=== PATIENT | female | born 1955 | race Two or more races ===

== ENCOUNTER 2020-05-15 05:40 | Inpatient (IN) | payer MEDICAID ==
[~2020-05-15] VITALS: Ht 154.9 cm; Wt 48.6 kg
[2020-05-15 05:46] VITALS: BP 134/79
--- NOTE | 2020-05-15 05:46 | NUR ---
ED Nurse Note: Pt biba from home CO CP x 2 days 05/10 in medial chest. Pt denies pain raidating, n/v/d/fever. Pt aao x 4, VSS no ss of distress noted. IV placed by EMT en route to hospital. Blood drawn and sent to lab. EKG performed by NUCLEAR POWER REACTOR OPERATOR. Awaiting ERMD at bedside. Pt placed in gown and on monitor. Awaiting further orders.
--- NOTE | 2020-05-15 05:51 | NUR ---
ED Nurse Note: Pt placed on 2L NC per ERMD; Spo2 100%
[2020-05-15] MEDS ORDERED: Nitroglycerin 2% oint pkt TOPIC ONE ×2 (05:59→06:15)
--- NOTE | 2020-05-15 06:00 | NUR ---
ED Nurse Note: XRAY at bedside
[2020-05-15 06:02] LABS: BASOPHILS % (AUTO) 1.8 % (0.0-2.0); EOSINOPHILS % (AUTO) 0.7 % (0.0-3.0); HEMATOCRIT 38.8 % (37.0-47.0); HEMOGLOBIN 13.3 G/DL (12.0-16.0); LYMPHOCYTES % (AUTO) 29.4 % (20.0-45.0); MEAN CORPUSCULAR VOLUME 90 FL (80-99); MONOCYTES % (AUTO) 7.2 % (1.0-10.0); NEUTROPHILS % (AUTO) 60.8 % (45.0-75.0); PLATELET COUNT 248 K/UL (150-450); RED BLOOD COUNT 4.31 M/UL (4.20-5.40); WHITE BLOOD COUNT 6.9 K/UL (4.8-10.8)
--- NOTE | 2020-05-15 06:03 | Emergency Room Report ---
History of Present Illness General Chief Complaint: Chest Pain Source: Patient Present Illness HPI Disclaimer: Please note that this report is being documented using [employer] technology. This can lead to erroneous entry secondary to incorrect interpretation by the dictating instrument. HPI: 64-year-old female history of hypertension and cardiac disease presents for evaluation of chest pain. She has been having intermittent chest pain for the past few weeks and a recent echocardiogram performed by PMD reportedly showed atherosclerotic disease. She states over the past 2 days the pain is been constant over the left chest nonradiating and aching. She describes it as an internal pain. Also notes some tingling in the hands. Denies fever, chills , shortness of breath, cough, URI symptoms, nausea, vomiting. Did report diaphoresis. PMH: Anxiety, CAD, hypertension PSH: Reviewed Allergies: Denies Social Hx: Reviewed Allergies: Coded Allergies: No Known Allergies (Unverified , 05/15/20) COVID-19 Screening Contact w/high risk pt: No Experienced COVID-19 symptoms?: No COVID-19 Testing performed LEAD BURNER SUPERVISOR: No Patient History Last Menstrual Period: n/a Now: No Nursing Documentation-PMH Past Medical History: No History, Except For Review of Systems All Other Systems: negative except mentioned in HPI Physical Exam Vital Signs Date Time Temp Pulse Resp B/P (MAP) Pulse Ox O2 Delivery O2 Flow Rate FiO2 05/15/20 05:36 99.0 72 16 134/79 (97) 99 Room Air General: Awake and alert, appears uncomfortable HEENT: NC/AT. EOMI. Cardiovascular: RRR. S1 and S2 normal. No murmur appreciated Resp: Normal work of breathing. No cough, wheezing or crackles appreciated Abdomen: Abdomen is soft, nondistended. Nontender Skin: Intact. No abrasions, laceration or rash over the exposed skin MSK: Normal tone and bulk. Moving all extremities. No obvious deformity. Neuro: Awake and alert. Mentating appropriately. Medical Decision Making Diagnostic Impression: Primary Impression: Chest pain Additional Impressions: Bradycardia Hyponatremia ER Course This is 64-year-old female history of hypertension and CAD presenting with chest pain. Concern for unstable angina, ACS, arrhythmia, pericarditis, myocarditis, bronchitis, pneumonia, pneumothorax, anxiety, esophageal spasm, electrolyte abnormality. Patient states she has a history of atherosclerotic disease but is not had a stress test yet. She arrives complaining of left- sided chest pain even after nitroglycerin and aspirin were given by EMS. Her EKG on arrival shows sinus rhythm with some T wave inversion in the precordial leads but no acute ST segment changes. She has had episodes of bradycardia going as low as 35 bpm and quickly recovering. Labs including cardiac enzymes have returned within normal limits. She continued to complain of chest pain and morphine was ordered. She noted some improvement. Given the patient's risk factors and brief episodes of bradycardia should be admitted to the telemetry service under panel physician, Dr. Arellano. Laboratory Tests Test 05/15/20 05:42 05/15/20 07:40 White Blood Count 6.9 K/UL (4.8-10.8) Red Blood Count 4.31 M/UL (4.20-5.40) Hemoglobin 13.3 G/DL (12.0-16.0) Hematocrit 38.8 % (37.0-47.0) Mean Corpuscular Volume 90 FL (80-99) Mean Corpuscular Hemoglobin 31.0 PG (27.0-31.0) Mean Corpuscular Hemoglobin Concent 34.4 G/DL (32.0-36.0) Red Cell Distribution Width 11.0 % (11.6-14.8) L Platelet Count 248 K/UL (150-450) Mean Platelet Volume 5.7 FL (6.5-10.1) L Neutrophils (%) (Auto) 60.8 % (45.0-75.0) Lymphocytes (%) (Auto) 29.4 % (20.0-45.0) Monocytes (%) (Auto) 7.2 % (1.0-10.0) Eosinophils (%) (Auto) 0.7 % (0.0-3.0) Basophils (%) (Auto) 1.8 % (0.0-2.0) Urine Osmolality 374 mOsm/kg (429-449) L Urine Random Sodium 84 mmol/L (20-110) Sodium Level 128 MMOL/L (136-145) L Potassium Level 3.2 MMOL/L (3.5-5.1) L Chloride Level 97 MMOL/L (98-107) L Carbon Dioxide Level 23 MMOL/L (21-32) Anion Gap 8 mmol/L (5-15) Blood Urea Nitrogen 13 mg/dL (7-18) Creatinine 0.8 MG/DL (0.55-1.30) Estimated Glomerular Filtration Rate > 60 mL/min (>60) Glucose Level 139 MG/DL (74-106) H Osmolality 282 mOsm/kg (297-317) L Uric Acid 2.8 MG/DL (2.6-7.2) Calcium Level 9.2 MG/DL (8.5-10.1) Phosphorus Level 2.9 MG/DL (2.5-4.9) Magnesium Level 1.8 MG/DL (1.8-2.4) Total Bilirubin 0.8 MG/DL (0.2-1.0) Aspartate Amino Transferase (AST) 70 U/L (15-37) H Alanine Aminotransferase (ALT) 119 U/L (12-78) H Alkaline Phosphatase 87 U/L (46-116) Troponin I 0.000 ng/mL (0.000-0.056) Total Protein 8.0 G/DL (6.4-8.2) Albumin 4.0 G/DL (3.4-5.0) Globulin 4.0 g/dL Albumin/Globulin Ratio 1.0 (1.0-2.7) Triglycerides Level 54 MG/DL (30-150) Cholesterol Level 183 MG/DL (< 200) LDL Cholesterol 108 mg/dL (<100) H HDL Cholesterol 68 MG/DL (40-60) H Cholesterol/HDL Ratio 2.7 (3.3-4.4) L Thyroid Stimulating Hormone (TSH) 1.534 uiU/mL (0.358-3.740) Urine Opiates Screen Positive (NEGATIVE) H Urine Barbiturates Screen Negative (NEGATIVE) Phencyclidine (PCP) Screen Negative (NEGATIVE) Urine Amphetamines Screen Negative (NEGATIVE) Urine Benzodiazepines Screen Negative (NEGATIVE) Urine Cocaine Screen Negative (NEGATIVE) Urine Marijuana (THC) Screen Negative (NEGATIVE) EKG Diagnostic Results EKG Time: 05:35 Rate: normal Rhythm: NSR ST Segments: no acute changes Other Impression Sinus rhythm, slight right axis with signs of RVH. T wave inversions precordial leads. No prior for comparison. No ST segment changes. ASA given to the pt in ED: Yes Rhythm Strip Diag. Results Rhythm Strip Time: 05:35 EP Interpretation: yes Rate: 60s Rhythm: NSR, no PVC's, no ectopy Chest X-Ray Diagnostic Results Chest X-Ray Diagnostic Results : Chest X-Ray Ordered: Yes # of Views/Limited/Complete: 1 View Indication: Chest Pain EP Interpretation: Yes Interpretation: no consolidation, no effusion, no pneumothorax, no acute cardiopulmonary disease Impression: No acute disease Electronically Signed by: Electronically signed by Dr. Johan Weaver Last Vital Signs Date Time Temp Pulse Resp B/P (MAP) Pulse Ox O2 Delivery O2 Flow Rate FiO2 05/15/20 05:46 72 16 Room Air 05/15/20 05:46 99.0 134/79 99 Disposition: ADMITTED INPATIENT Condition: Serious Johan Weaver MD May 15, 2020 06:03
--- NOTE | 2020-05-15 06:05 | NUR ---
ED Nurse Note: ERMD at bedside
--- NOTE | 2020-05-15 06:10 | NUR ---
ED Nurse Note: Pt HR continues to drop intermittently (marked low: HR35). ERMD aware and notified. Will continue to monitor.
[2020-05-15 06:13] LABS: ANION GAP 8 mmol/L (5-15); BLOOD UREA NITROGEN 13 mg/dL (7-18); CALCIUM 9.2 MG/DL (8.5-10.1); CARBON DIOXIDE 23 MMOL/L (21-32); CHLORIDE 97 MMOL/L (98-107); CREATININE 0.8 MG/DL (0.55-1.30); POTASSIUM 3.2 MMOL/L (3.5-5.1); SODIUM 128 MMOL/L (136-145)
--- NOTE | 2020-05-15 06:15 | NUR ---
ED Nurse Note: Repeat EKG performed by RN per ERMD. ERMD aware and reviewed.
--- NOTE | 2020-05-15 06:15 | NUR ---
ED Nurse Note: All medications administered, pt tolerated well no ss of distress noted. will continue to monitor.
[2020-05-15 06:18] LABS: ALANINE AMINOTRANSFERASE 119 U/L (12-78); ALKALINE PHOSPHATASE 87 U/L (46-116); ASPARTATE AMINO TRANSFERASE 70 U/L (15-37); BILIRUBIN,TOTAL 0.8 MG/DL (0.2-1.0)
[2020-05-15] MEDS ORDERED: SERTRALINE HCL25 MG ORAL (06:22)
--- NOTE | 2020-05-15 06:24 | NUR ---
ED Nurse Note: pt states she is unable to provide UA at this time. ERMD aware.
[2020-05-15] MEDS ORDERED: Morphine Sulfate 4mg/ml Inj (IV USE ONLY) IVP ONE (06:30)
--- NOTE | 2020-05-15 06:35 | NUR ---
ED Nurse Note: All medications administered, pt tolerated well no ss of distress noted. will continue to monitor.
[2020-05-15 06:44] LABS: PHOSPHORUS 2.9 MG/DL (2.5-4.9)
--- NOTE | 2020-05-15 06:56 | NUR ---
ED Nurse Note: Pt HR continues to drop intermittently (HR 42) ERMD aware. Will continue to monitor.
--- NOTE | 2020-05-15 07:03 | NUR ---
HAND-OFF: Report given to ENDER Teresa.
--- NOTE | 2020-05-15 07:05 | NUR ---
ED Nurse Note: PT currently resting in bed. pt states she is unable to urinate at this time will reattempt to obtain sample at a later time.
--- NOTE | 2020-05-15 07:05 | Diagnostic Imaging Report ---
EXAM: XR Chest, 1 View CLINICAL HISTORY: CP TECHNIQUE: Frontal view of the chest. COMPARISON: No relevant prior studies available. FINDINGS: Lungs: Unremarkable. No consolidation. Pleural space: No pleural effusion. No pneumothorax. Heart: Unremarkable. No cardiomegaly. Bones/joints: Unremarkable. IMPRESSION: No acute cardiopulmonary abnormality.
--- NOTE | 2020-05-15 07:30 | NUR ---
ED Nurse Note: Assisted pt restroom to obtain urine sample. pt vss. pt denies pain at this time but feels a little dizzy. IV site patent and intact. will call floor to give report for continuity of care.
[2020-05-15 07:37] VITALS: BP 112/62
--- NOTE | 2020-05-15 07:58 | NUR ---
ED Nurse Note: Telephone report given to ENDER Daniels for continuity of care.
--- NOTE | 2020-05-15 08:15 | NUR ---
TRANSFER TO FLOOR: Patient transferred to Tele as ordered, per ERMD. Report given to ENDER Daniels. Belongings given to pt.
--- NOTE | 2020-05-15 10:40 | NUR ---
NURSE NOTES: Pt complaining of chest pain, nausea and vomiting. MD notified, awaiting call back.
--- NOTE | 2020-05-15 11:10 | NUR ---
NURSE NOTES: Patient is admitted [facility] ED [facility]. On RA. AAO x 4. Rwandan speaking. IV on L hand 18g noted, with SL. Heart monitor on. c/o of pain on the chest. Admission orders are given by Dr. Arellano. Orientation on the unit given. Belongings are accounted. Skin intact. Side rails x 2. Bed in the lowest and locked. Call light within reach. Educated pt to call for assistance. Will continue to monitor
[2020-05-15 11:40] LABS: CHOLESTEROL 183 MG/DL (< 200); HDL CHOLESTEROL 68 MG/DL (40-60); TRIGLYCERIDES 54 MG/DL (30-150)
[2020-05-15 12:00] VITALS: BP 99/53
--- NOTE | 2020-05-15 13:09 | Consultation ---
Consult Note Consult Note I am asked to evaluate the patient at the request of Dr. Khan for hyponatremia and fluid and electrolyte management Patient seen in room 219. Patient examined. Data reviewed. Patient is Micronesian speaker. Chief Complaint: Chest Pain HPI: 64-year-old female history of hypertension and cardiac disease presents for evaluation of chest pain. She has been having intermittent chest pain for the past few weeks and a recent echocardiogram performed by PMD reportedly showed atherosclerotic disease. She states over the past 2 days the pain is been constant over the left chest nonradiating and aching. She describes it as an internal pain. Also notes some tingling in the hands. Denies fever, chills , shortness of breath, cough, URI symptoms, nausea, vomiting. Did report diaphoresis. PMH: Anxiety, CAD, hypertension PSH: Reviewed Allergies: Denies Social Hx: Reviewed Allergies: No Known Allergies (Unverified , 05/15/20) COVID-19 Screening Contact w/high risk pt: No Experienced COVID-19 symptoms?: No COVID-19 Testing performed SAUSAGE GRINDER: No Vital Signs Date Time Temp Pulse Resp B/P (MAP) Pulse Ox O2 Delivery O2 Flow Rate FiO2 05/15/20 05:36 99.0 72 16 134/79 (97) 99 Room Air General: Awake and alert, appears uncomfortable HEENT: NC/AT. EOMI. Cardiovascular: RRR. S1 and S2 normal. No murmur appreciated Resp: Normal work of breathing. No cough, wheezing or crackles appreciated Abdomen: Abdomen is soft, nondistended. Nontender Skin: Intact. No abrasions, laceration or rash over the exposed skin MSK: Normal tone and bulk. Moving all extremities. No obvious deformity. Neuro: Awake and alert. Mentating appropriately. LABORATORY DATA: Labs show sodium 128, potassium 3.2, BUN of 13, creatinine 0.8, and glucose of 139. Troponin is negative. White count is 6.9, hematocrit 13.3, hematocrit 38 and platelet count 248. Urine toxicology is positive for opiate. . . 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 Per orders Kyle Michel MD May 15, 2020 13:09
--- NOTE | 2020-05-15 13:15 | NUR ---
NURSE NOTES: Pt sodium 126, Dr Corona notified and ordered to consult Shereen. Shereen made aware of sodium 126. Awaiting call back. Pt temperature of 100.6, Dr Corona notified and ordered consult Rhea Best. Dr Rhea Best made aware. Awaiting call back.
--- NOTE | 2020-05-15 13:16 | NUR ---
CASE MANAGEMENT:INITIAL REVIEW 64 YR OLD FEMALE MIMI FROM HOME CC;CHEST PAIN SI;ACUTE CORONARY SYNDROME 99.0 72 16 134/79 98% ONRA NA 239 K+ 3.2 CL 97 BG 139 OSMOLALITY 282 AST 70 ALT 119 URINE OSMOLALITY 374 URINE TOX (+) OPIATES CXR~No acute cardiopulmonary abnormality. IS;NITROGLYCERIN TOP ONCE MORPHINE IV KCL PO ADMITTED TO TELE 05/15/20 @ 0742 TELE STATUS DCP;FROM HOME Addendum: 05/16/20 at 1526 by MIKEY MCADAMS LVN LVN CORRECTION: Na = 128 Addendum: 05/16/20 at 1603 by MIKEY MCADAMS LVN LVN INTERQUAL CRITERIA MET
[2020-05-15] MEDS ORDERED: NaCl 3% 500ml 250 ML IV ONE (14:30)
[2020-05-15 16:00] VITALS: BP 102/60
--- NOTE | 2020-05-15 16:35 | Cardiac Electrophysiology PN ---
Subjective Subjective [id number] Objective Last 24 Hour Vital Signs Date Time Temp Pulse Resp B/P (MAP) Pulse Ox O2 Delivery O2 Flow Rate FiO2 05/15/20 12:00 60 05/15/20 12:00 100.6 64 20 99/53 (68) 98 05/15/20 09:00 Room Air 05/15/20 08:36 Room Air 05/15/20 08:23 98.8 63 16 126/73 98 Room Air 05/15/20 07:40 98.8 05/15/20 07:37 98.8 59 15 112/62 100 Room Air 05/15/20 06:05 125/75 05/15/20 05:46 72 16 Room Air 05/15/20 05:46 99.0 62 16 134/79 99 Room Air 05/15/20 05:36 99.0 72 16 134/79 (97) 99 Room Air Laboratory Tests Test 05/15/20 05:42 05/15/20 07:40 White Blood Count 6.9 K/UL (4.8-10.8) Red Blood Count 4.31 M/UL (4.20-5.40) Hemoglobin 13.3 G/DL (12.0-16.0) Hematocrit 38.8 % (37.0-47.0) Mean Corpuscular Volume 90 FL (80-99) Mean Corpuscular Hemoglobin 31.0 PG (27.0-31.0) Mean Corpuscular Hemoglobin Concent 34.4 G/DL (32.0-36.0) Red Cell Distribution Width 11.0 % (11.6-14.8) L Platelet Count 248 K/UL (150-450) Mean Platelet Volume 5.7 FL (6.5-10.1) L Neutrophils (%) (Auto) 60.8 % (45.0-75.0) Lymphocytes (%) (Auto) 29.4 % (20.0-45.0) Monocytes (%) (Auto) 7.2 % (1.0-10.0) Eosinophils (%) (Auto) 0.7 % (0.0-3.0) Basophils (%) (Auto) 1.8 % (0.0-2.0) Urine Osmolality 374 mOsm/kg (429-449) L Urine Random Sodium 84 mmol/L (20-110) Sodium Level 128 MMOL/L (136-145) L Potassium Level 3.2 MMOL/L (3.5-5.1) L Chloride Level 97 MMOL/L (98-107) L Carbon Dioxide Level 23 MMOL/L (21-32) Anion Gap 8 mmol/L (5-15) Blood Urea Nitrogen 13 mg/dL (7-18) Creatinine 0.8 MG/DL (0.55-1.30) Estimat Glomerular Filtration Rate > 60 mL/min (>60) Glucose Level 139 MG/DL (74-106) H Osmolality 282 mOsm/kg (297-317) L Uric Acid 2.8 MG/DL (2.6-7.2) Calcium Level 9.2 MG/DL (8.5-10.1) Phosphorus Level 2.9 MG/DL (2.5-4.9) Magnesium Level 1.8 MG/DL (1.8-2.4) Total Bilirubin 0.8 MG/DL (0.2-1.0) Aspartate Amino Transf (AST/SGOT) 70 U/L (15-37) H Alanine Aminotransferase (ALT/SGPT) 119 U/L (12-78) H Alkaline Phosphatase 87 U/L (46-116) Troponin I 0.000 ng/mL (0.000-0.056) Total Protein 8.0 G/DL (6.4-8.2) Albumin 4.0 G/DL (3.4-5.0) Globulin 4.0 g/dL Albumin/Globulin Ratio 1.0 (1.0-2.7) Triglycerides Level 54 MG/DL (30-150) Cholesterol Level 183 MG/DL (< 200) LDL Cholesterol 108 mg/dL (<100) H HDL Cholesterol 68 MG/DL (40-60) H Cholesterol/HDL Ratio 2.7 (3.3-4.4) L Thyroid Stimulating Hormone (TSH) 1.534 uiU/mL (0.358-3.740) Urine Opiates Screen Positive (NEGATIVE) H Urine Barbiturates Screen Negative (NEGATIVE) Phencyclidine (PCP) Screen Negative (NEGATIVE) Urine Amphetamines Screen Negative (NEGATIVE) Urine Benzodiazepines Screen Negative (NEGATIVE) Urine Cocaine Screen Negative (NEGATIVE) Urine Marijuana (THC) Screen Negative (NEGATIVE) Alfie Cronin MD May 15, 2020 16:35
[2020-05-15] MEDS ORDERED: Lexiscan 0.4mg/5ml syringe IV PRN (16:45)
[2020-05-15] MEDS: Docusate 100mg cap ORAL SCH (17:25)
--- NOTE | 2020-05-15 19:21 | NUR ---
NURSE HAND-OFF REPORT: Important Events on Shift: admission from ER, N/V @ 0920, replacement of sodium and potassium Patient Status: FC, stable Diet: cardiac diet, regular Pending Orders: stress test 05/17, need SCDs from central supply Pending Results/Labs: Pending MD notification: Latest Vital Signs: Temperature 99.7 , Pulse 67 , B/P 102 /60 , Respiratory Rate 20 , O2 SAT 98 , Room Air, O2 Flow Rate . Vital Sign Comment: EKG Rhythm: Sinus Rhythm Rhythm change?: N MD Notified?: N - MD Response: Latest Barnes Fall Score: 30 Fall Risk: Medium Risk Safety Measures: Call light Within Reach, Bed Alarm Zone 1, Side Rails Side Rails x2, Bed position Low and Locked. Fall Precautions: Yellow Socks Door Sign Patient Fall Education Report given to ENDER Bhakta .
[2020-05-15 20:00] VITALS: BP 137/77
--- NOTE | 2020-05-15 20:00 | Consultation ---
DATE OF CONSULTATION: 05/15/2020 CARDIOLOGY CONSULTATION REFERRING PHYSICIAN: Karie Arellano M.D. REASON FOR CONSULTATION: Chest pain. HISTORY OF PRESENT ILLNESS: The patient is a 64-year-old lady with history of hypertension, who presented to the emergency room complaining of chest pain that has been going on over the last few weeks. The patient had a recent echocardiogram by primary care doctor and was told that she has atherosclerotic disease. The patient denies any prior myocardial infarction or stent or congestive heart failure. The patient presented with 2 days of left-sided chest pain, which is nonradiating, and also some tingling in her hands. The patient was admitted and a cardiology consultation was obtained for further evaluation and management. It is of note that the patient's sodium was quite low at 128 and has been given 3% normal saline. Her EKG shows sinus rhythm with anterior T-wave inversion, but no ST elevation. The patient had transient episodes of bradycardia, heart rate dropping to 35, but completely recovered. REVIEW OF SYSTEMS: Negative other than what was mentioned in the history of present illness. PAST MEDICAL HISTORY: As mentioned above. FAMILY HISTORY: Noncontributory. SOCIAL HISTORY: She lives at home. Does not smoke or drink alcohol. PHYSICAL EXAMINATION: VITAL SIGNS: Blood pressure of 99/52, pulse 86, respirations 18, and temperature 100.6, NECK: No jugular venous distention. LUNGS: Clear. CARDIOVASCULAR: Regular S1 and S2 with no gallop or murmur. ABDOMEN: Soft. EXTREMITIES: No pitting edema. LABORATORY DATA: Labs show sodium 128, potassium 3.2, BUN of 13, creatinine 0.8, and glucose of 139. Troponin is negative. White count is 6.9, hematocrit 13.3, hematocrit 38 and platelet count 248. Urine toxicology is positive for opiate. ASSESSMENT AND PLAN: 1. Chest pain. EKG showed anterior T-wave inversion. We will completely rule out OR protocol. Her echocardiogram showed ejection fraction of 50-55%, mild pulmonary hypertension. As the troponins are negative, we will schedule the patient for a stress test. 2. Hyponatremia. The patient has been given 3% normal saline and Lasix 10 mg IV every 8 hours. Further evaluation by Dr. Michel. 3. Hypokalemia. Potassium was replaced. Thank you very much for allowing me to participate in the care of this patient. Please do not hesitate to contact me for any questions regarding my evaluation. Alfie Cronin M.D. DR: THUY JOB#: [id number] CC:
--- NOTE | 2020-05-15 20:11 | NUR ---
NURSE NOTES: Received patient report from ENDER Daniels and ENDER Caceres. Patient shows no signs of distress, describes 4/10 pain on her chest but says its less than what she was feeling at home. Patient is a Chinese speaking female, AO x4. She is able to ambulate to restroom with a steady gait. Instructed her to call before getting up. IV site is patent and flushed. There are no signs of erythema, infiltration, or bleeding. Patient is on 2 L nasal canula and saturating at 98 % and denies shortness of breath. No complaints of nausea and vomiting. Bed is in the lowest position, call light within reach, side rails up x2. Called central supply for SCDs again and there was no answer. Will continue to monitor.
--- NOTE | 2020-05-15 21:22 | General Progress Note ---
Assessment/Plan Assessment/Plan: Assessment - Abnormal LFT - Epigastric pain - Chest pain Recommendations - Check viral serologies - abd ultrasound Sunday - PPI Thank you Nerissa Sanchez MD Subjective Allergies: Coded Allergies: No Known Allergies (Unverified , 05/15/20) Objective Last 24 Hour Vital Signs Date Time Temp Pulse Resp B/P (MAP) Pulse Ox O2 Delivery O2 Flow Rate FiO2 05/15/20 20:00 98.8 78 20 137/77 (97) 98 05/15/20 16:00 99.7 68 20 102/60 (74) 98 05/15/20 16:00 67 05/15/20 12:00 60 05/15/20 12:00 100.6 64 20 99/53 (68) 98 05/15/20 09:00 Room Air 05/15/20 08:36 Room Air 05/15/20 08:23 98.8 63 16 126/73 98 Room Air 05/15/20 07:40 98.8 05/15/20 07:37 98.8 59 15 112/62 100 Room Air 05/15/20 06:05 125/75 05/15/20 05:46 72 16 Room Air 05/15/20 05:46 99.0 62 16 134/79 99 Room Air 05/15/20 05:36 99.0 72 16 134/79 (97) 99 Room Air Laboratory Tests 05/15/20 05:42: White Blood Count 6.9, Red Blood Count 4.31, Hemoglobin 13.3, Hematocrit 38.8, Mean Corpuscular Volume 90, Mean Corpuscular Hemoglobin 31.0, Mean Corpuscular Hemoglobin Concent 34.4, Red Cell Distribution Width 11.0L, Platelet Count 248, Mean Platelet Volume 5.7L, Neutrophils (%) (Auto) 60.8, Lymphocytes (%) (Auto) 29.4, Monocytes (%) (Auto) 7.2, Eosinophils (%) (Auto) 0.7, Basophils (%) (Auto ) 1.8, Urine Osmolality 374L, Urine Random Sodium 84, Sodium Level 128L, Potassium Level 3.2L, Chloride Level 97L, Carbon Dioxide Level 23, Anion Gap 8, Blood Urea Nitrogen 13, Creatinine 0.8, Estimat Glomerular Filtration Rate > 60 , Glucose Level 139H, Osmolality 282L, Uric Acid 2.8, Calcium Level 9.2, Phosphorus Level 2.9, Magnesium Level 1.8, Total Bilirubin 0.8, Aspartate Amino Transf (AST/SGOT) 70H, Alanine Aminotransferase (ALT/SGPT) 119H, Alkaline Phosphatase 87, Troponin I 0.000, Total Protein 8.0, Albumin 4.0, Globulin 4.0, Albumin/Globulin Ratio 1.0, Triglycerides Level 54, Cholesterol Level 183, LDL Cholesterol 108H, HDL Cholesterol 68H, Cholesterol/HDL Ratio 2.7L, Thyroid Stimulating Hormone (TSH) 1.534 05/15/20 07:40: Urine Opiates Screen PositiveH, Urine Barbiturates Screen Negative, Phencyclidine (PCP) Screen Negative, Urine Amphetamines Screen Negative, Urine Benzodiazepines Screen Negative, Urine Cocaine Screen Negative, Urine Marijuana (THC) Screen Negative Height (Feet): 5 Height (Inches): 1.00 Weight (Pounds): 119 Nerissa Sanchez MD May 15, 2020 21:22
[2020-05-16] VITALS: BP 99/55
--- NOTE | 2020-05-16 01:45 | Consultation ---
DATE OF CONSULTATION: 05/15/2020 GASTROENTEROLOGY CONSULTATION CHIEF COMPLAINT: I was asked to see the patient by Dr. Karie Arellano for evaluation of abnormal liver tests. HISTORY OF PRESENT ILLNESS: The patient is a 64-year-old woman who has been admitted to the hospital due to chest pain. She is being evaluated by Cardiology for possible cardiac events. The patient also complains of some epigastric pain for about two weeks or so. She has had no nausea, vomiting, or diarrhea. The pain comes and goes and does note relate to meals. She has never had endoscopy or colonoscopy before. She was found to have some abnormal liver tests. She has never had a history of liver disease in the past. PAST MEDICAL HISTORY: History of possible coronary artery disease. The patient otherwise does not give any past medical history. FAMILY HISTORY: Noncontributory. SOCIAL HISTORY: The patient is . She does not smoke or drink alcohol. She lives at home. REVIEW OF SYSTEMS: Otherwise negative. PHYSICAL EXAMINATION: GENERAL: A pleasant woman, seen in her room. HEENT: Normocephalic and atraumatic. Sclerae anicteric. Oropharynx clear. NECK: Supple. CHEST: Clear to auscultation. CARDIOVASCULAR: Revealed regular rate. ABDOMEN: Soft, nontender and nondistended. EXTREMITIES: No edema. LABORATORY DATA: Noted. The patient's transaminases were elevated. ASSESSMENT: This patient presents with some epigastric abdominal pain without any specific features and also some abnormal liver tests. The differential diagnosis of the latter includes typical chronic hepatitis such as type B and C and also mass lesions in the liver. Therefore, she should have the imaging of the liver and hepatitis serologies. Gallbladder pathology will be another consideration, although the pain does not change with meals. She should be placed on a proton pump inhibitor in case her epigastric abdominal discomfort is actually peptic in origin. The patient was advised she have an endoscopy and colonoscopy once she has recovered from her current illness. Her liver tests should be followed and CPK and cardiac enzymes should also be checked to rule out any false-positive elevations. RECOMMENDATIONS: Per above discussion and per orders written in the chart. Thank you for asking me to participate in the care of this patient. Payman Khorrami, M.D. DR: Catracho JOB#: [id number] CC: NAVARRO
--- NOTE | 2020-05-16 01:45 | History and Physical Report ---
DATE OF ADMISSION: 05/15/2020 HISTORY OF PRESENT ILLNESS: The patient is admitted for chest pain, rule out acute coronary syndrome. The patient also has a history of CAD. She comes in because of intermittent chest pain, nonradiating, became constant. The patient also has some abnormalities based on the EKG, but no ST-segment changes. The patient was also bradycardic and troponin was negative rule out acute coronary syndrome. The patient also has low potassium, low sodium, as well as elevated LFTs, and that is the reason for admission. The patient basically has been having intermittent chest pains for the past 2 days. It is becoming more constant. Denies any shortness of breath. Denies any cough. Denies fever or chills. Denies diarrhea. Denies diaphoresis. Denies palpitation. PAST MEDICAL HISTORY: Significant for anxiety, CAD, hypertension. MEDICATIONS: The patient takes sertraline. FAMILY HISTORY: Noncontributory. SOCIAL HISTORY: As mentioned. REVIEW OF SYSTEMS: RESPIRATORY: Denies shortness of breath. Denies cough. CARDIOVASCULAR: Denies chest pain. GASTROINTESTINAL: Denies nausea, vomiting, or diarrhea. EXTREMITIES: Denies any significant pain. PHYSICAL EXAMINATION: VITAL SIGNS: Temperature is 100.6, pulse is 60, blood pressure 99/52. HEENT: PERRLA. NECK: Supple. No lymphadenopathy. CHEST: Clear to auscultation. CARDIOVASCULAR: Bradycardic. No murmurs. GASTROINTESTINAL: Soft, nontender, and nondistended. No organomegaly. EXTREMITIES: No edema. Moves all four extremities. Sensory intact to light touch. Reflexes on both sides. Dorsalis pedis pulses are present. LABORATORY DATA: WBC of 6.9, hemoglobin 13.3, and platelets 248. Sodium 139, potassium 3.2, BUN of 13, creatinine 0.8, and glucose of 139. ASSESSMENT AND PLAN: The patient is admitted for chest pain, rule out acute coronary syndrome. The patient has history of CAD, has some T-wave abnormalities, also became bradycardic before. Rule out acute coronary syndrome. Also, the patient has hyponatremia and elevated LFTs as well as hypokalemia. 1. Hypokalemia. 2. Electrolyte imbalance. 3. Chest pain, rule out acute coronary syndrome. 4. Bradycardia. 5. Elevated LFTs. I have asked Dr. Cronin, Dr. Michel, Dr. Nerissa Sanchez, Dr. Cornell Best to see the patient for the above-mentioned diagnoses and treatment. Antibiotics per Infectious Disease. I will see the patient for the above symptoms and abnormalities including imaging. Karie Arellano M.D. DR: CHRISSY JOB#: [id number] CC:
[2020-05-16 04:00] VITALS: BP 102/65
[2020-05-16 07:31] LABS: BASOPHILS % (AUTO) 1.4 % (0.0-2.0); EOSINOPHILS % (AUTO) 1.4 % (0.0-3.0); HEMATOCRIT 40.9 % (37.0-47.0); HEMOGLOBIN 13.8 G/DL (12.0-16.0); LYMPHOCYTES % (AUTO) 24.3 % (20.0-45.0); MEAN CORPUSCULAR VOLUME 92 FL (80-99); MONOCYTES % (AUTO) 8.4 % (1.0-10.0); NEUTROPHILS % (AUTO) 64.6 % (45.0-75.0); PLATELET COUNT 252 K/UL (150-450); RED BLOOD COUNT 4.44 M/UL (4.20-5.40); RED CELL DISTRIBUTION WIDTH 11.4 % (11.6-14.8); WHITE BLOOD COUNT 7.9 K/UL (4.8-10.8)
--- NOTE | 2020-05-16 07:35 | NUR ---
NURSE NOTES: Received report from Livia/RN, Observed patient lying semi-fowlers, resting comfortably, able to make needs known, denies pain at this time. On room air, No acute distress/SOB noted, Breathing unlabored and even. IV on left hand, saline locked. site is patent and clean. Bed in low position and locked. Call light and bed side table within reach. Encouraged to use call light when needed. Will continue plan of care.
--- NOTE | 2020-05-16 07:37 | NUR ---
NURSE HAND-OFF REPORT: Important Events on Shift:NA Patient Status:Full Code Diet: Cardiac Diet/ NPO for ultra sound Pending Orders: Abdominal Ultrasound Pending Results/Labs:NA Pending MD notification:NA Latest Vital Signs: Temperature 98.4 , Pulse 61 , B/P 102 /65 , Respiratory Rate 20 , O2 SAT 98 , Room Air, O2 Flow Rate . Vital Sign Comment: NA EKG Rhythm: Sinus Rhythm Rhythm change?: N MD Notified?: N - MD Response: Latest Barnes Fall Score: 30 Fall Risk: Medium Risk Safety Measures: Call light Within Reach, Bed Alarm Zone 1, Side Rails Side Rails x2, Bed position Low and Locked. Fall Precautions: Yellow Socks Door Sign Patient Fall Education Report given to ENDER Bettencourt.
[2020-05-16 07:43] LABS: ALANINE AMINOTRANSFERASE 125 U/L (12-78); ALBUMIN 4.1 G/DL (3.4-5.0); ALBUMIN/GLOBULIN RATIO 0.9 (1.0-2.7); ALKALINE PHOSPHATASE 90 U/L (46-116); ANION GAP 12 mmol/L (5-15); ASPARTATE AMINO TRANSFERASE 68 U/L (15-37); BLOOD UREA NITROGEN 10 mg/dL (7-18); CALCIUM 9.6 MG/DL (8.5-10.1); CARBON DIOXIDE 26 MMOL/L (21-32); CHLORIDE 96 MMOL/L (98-107); CREATININE 0.7 MG/DL (0.55-1.30); POTASSIUM 4.4 MMOL/L (3.5-5.1); SODIUM 134 MMOL/L (136-145)
[2020-05-16 07:52] LABS: GAMMA GLUTAMYL TRANSPEPTIDASE 29 U/L (5-85); PHOSPHORUS 3.6 MG/DL (2.5-4.9)
[2020-05-16 08:00] VITALS: BP 127/72
[2020-05-16 08:00] LABS: CREATINE KINASE 126 U/L (26-308)
[2020-05-16] MEDS: Docusate 100mg cap ORAL SCH ×2 (08:38→17:28)
[2020-05-16] MEDS: Sertraline 50mg tab ORAL SCH (08:38)
[2020-05-16] MEDS: Aspirin Baby 81mg ORAL SCH (08:38)
[2020-05-16] MEDS ORDERED: NaCl 3% 500ml 250 ML IV SCH (11:30)
[2020-05-16 12:00] VITALS: BP 123/71
--- NOTE | 2020-05-16 12:27 | Nephrology Progress Note ---
Assessment/Plan Problem List: (1) Hyponatremia (2) SIADH (syndrome of inappropriate ADH production) (3) Bradycardia (4) Chest pain Assessment 64 Y old presents with CP Low Na: likely SIADH Low K Plan Patient's daughter at the bedside Continue 3% saline and intravenous Lasix Keep I<O PO Fluid restriction Protonix, Colace, oral potassium supplements, Monitor electrolytes. Per orders Subjective ROS Limited/Unobtainable: No Constitutional: Reports: malaise, weakness Objective Objective Last 24 Hour Vital Signs Date Time Temp Pulse Resp B/P (MAP) Pulse Ox O2 Delivery O2 Flow Rate FiO2 05/16/20 09:00 Room Air 05/16/20 08:00 59 05/16/20 08:00 98.4 59 20 127/72 (90) 97 05/16/20 04:00 61 05/16/20 04:00 98.4 58 20 102/65 (77) 98 05/16/20 00:00 58 05/16/20 00:00 98.8 59 20 99/55 (70) 97 05/15/20 21:00 Room Air 05/15/20 20:00 64 05/15/20 20:00 98.8 78 20 137/77 (97) 98 05/15/20 16:00 99.7 68 20 102/60 (74) 98 05/15/20 16:00 67 Intake and Output 05/15/20 05/16/20 19:00 07:00 Output Total 1 ml Balance -1 ml Output Urine Total 1 ml # Voids 3 4 # Bowel Movements 1 Current Medications Medications (Trade) Dose Ordered Sig/Juan Route PRN Reason Start Time Stop Time Status Last Admin Dose Admin Aspirin (ASA) 81 mg DAILY ORAL 05/16/20 09:00 06/30/20 08:59 05/16/20 08:38 Docusate Sodium (Colace) 100 mg TWICE A DAY ORAL 05/15/20 18:00 06/14/20 17:59 05/16/20 08:38 Furosemide (Lasix) 10 mg EVERY 8 HOURS IV 05/15/20 14:00 06/14/20 13:59 05/16/20 05:38 Ondansetron HCl (Zofran) 4 mg Q6H PRN ORAL Nausea & Vomiting 05/15/20 11:30 9/14/20 11:29 Pantoprazole (Protonix) 40 mg BID ORAL 05/15/20 18:00 06/14/20 17:59 05/16/20 08:38 Potassium Chloride (K-Dur) 40 meq TWICE A DAY ORAL 05/15/20 13:30 08/13/20 13:29 05/16/20 08:38 Regadenoson (Lexiscan) 0.4 mg ONCE PRN IV stress test 05/15/20 16:45 05/18/20 23:59 Sertraline HCl (Zoloft) 50 mg DAILY ORAL 05/16/20 09:00 06/15/20 08:59 05/16/20 08:38 Sodium Chloride 250 ml @ 30 mls/hr ONCE IV 05/16/20 11:30 05/16/20 12:30 05/16/20 11:51 Laboratory Tests 05/16/20 06:25: White Blood Count 7.9, Red Blood Count 4.44, Hemoglobin 13.8, Hematocrit 40.9, Mean Corpuscular Volume 92, Mean Corpuscular Hemoglobin 31.1H, Mean Corpuscular Hemoglobin Concent 33.8, Red Cell Distribution Width 11.4L, Platelet Count 252, Mean Platelet Volume 5.8L, Neutrophils (%) (Auto) 64.6, Lymphocytes (%) (Auto) 24.3, Monocytes (%) (Auto) 8.4, Eosinophils (%) (Auto) 1.4, Basophils (%) (Auto ) 1.4, Sodium Level 134L, Potassium Level 4.4, Chloride Level 96L, Carbon Dioxide Level 26, Anion Gap 12, Blood Urea Nitrogen 10, Creatinine 0.7, Estimat Glomerular Filtration Rate > 60, Glucose Level 104, Hemoglobin A1c 5.9, Uric Acid 2.4L, Calcium Level 9.6, Phosphorus Level 3.6, Magnesium Level 2.0, Total Bilirubin 1.0, Gamma Glutamyl Transpeptidase 29, Aspartate Amino Transf (AST/ SGOT) 68H, Alanine Aminotransferase (ALT/SGPT) 125H, Alkaline Phosphatase 90, Total Creatine Kinase 126, Troponin I 0.000, C-Reactive Protein, Quantitative < 0.4, Pro-B-Type Natriuretic Peptide 147H, Total Protein 8.6H, Albumin 4.1, Globulin 4.5, Albumin/Globulin Ratio 0.9L, Hepatitis A IgM Antibody [Pending], Hepatitis C Antibody [Pending] Height (Feet): 5 Height (Inches): 1.00 Weight (Pounds): 118 General Appearance: no apparent distress Cardiovascular: normal rate Respiratory/Chest: decreased breath sounds Abdomen: soft Kyle Michel MD May 16, 2020 12:27
--- NOTE | 2020-05-16 13:21 | General Progress Note ---
Assessment/Plan Assessment/Plan: Assessment - Abnormal LFT - Epigastric pain - Chest pain Recommendations - Check viral serologies - abd ultrasound Sunday - PPI Subjective Allergies: Coded Allergies: No Known Allergies (Unverified , 05/15/20) Subjective Feels OK / same unable to get ultrasound today mild epigastric pain Objective Last 24 Hour Vital Signs Date Time Temp Pulse Resp B/P (MAP) Pulse Ox O2 Delivery O2 Flow Rate FiO2 05/16/20 09:00 Room Air 05/16/20 08:00 59 05/16/20 08:00 98.4 59 20 127/72 (90) 97 05/16/20 04:00 61 05/16/20 04:00 98.4 58 20 102/65 (77) 98 05/16/20 00:00 58 05/16/20 00:00 98.8 59 20 99/55 (70) 97 05/15/20 21:00 Room Air 05/15/20 20:00 64 05/15/20 20:00 98.8 78 20 137/77 (97) 98 05/15/20 16:00 99.7 68 20 102/60 (74) 98 05/15/20 16:00 67 Intake and Output 05/15/20 05/16/20 19:00 07:00 Output Total 1 ml Balance -1 ml Output Urine Total 1 ml # Voids 3 4 # Bowel Movements 1 Laboratory Tests 05/16/20 06:25: White Blood Count 7.9, Red Blood Count 4.44, Hemoglobin 13.8, Hematocrit 40.9, Mean Corpuscular Volume 92, Mean Corpuscular Hemoglobin 31.1H, Mean Corpuscular Hemoglobin Concent 33.8, Red Cell Distribution Width 11.4L, Platelet Count 252, Mean Platelet Volume 5.8L, Neutrophils (%) (Auto) 64.6, Lymphocytes (%) (Auto) 24.3, Monocytes (%) (Auto) 8.4, Eosinophils (%) (Auto) 1.4, Basophils (%) (Auto ) 1.4, Sodium Level 134L, Potassium Level 4.4, Chloride Level 96L, Carbon Dioxide Level 26, Anion Gap 12, Blood Urea Nitrogen 10, Creatinine 0.7, Estimat Glomerular Filtration Rate > 60, Glucose Level 104, Hemoglobin A1c 5.9, Uric Acid 2.4L, Calcium Level 9.6, Phosphorus Level 3.6, Magnesium Level 2.0, Total Bilirubin 1.0, Gamma Glutamyl Transpeptidase 29, Aspartate Amino Transf (AST/ SGOT) 68H, Alanine Aminotransferase (ALT/SGPT) 125H, Alkaline Phosphatase 90, Total Creatine Kinase 126, Troponin I 0.000, C-Reactive Protein, Quantitative < 0.4, Pro-B-Type Natriuretic Peptide 147H, Total Protein 8.6H, Albumin 4.1, Globulin 4.5, Albumin/Globulin Ratio 0.9L, Hepatitis A IgM Antibody [Pending], Hepatitis C Antibody [Pending] Height (Feet): 5 Height (Inches): 1.00 Weight (Pounds): 118 Objective WDWN L woman NCAT supple CTA RR abd soft ND no edema Nerissa Sanchez MD May 16, 2020 13:21
--- NOTE | 2020-05-16 13:35 | NUR ---
NURSE NOTES: Called [facility] [phone] [facility] to get report on Angio seal that it was done on february 24. No response.
--- NOTE | 2020-05-16 13:58 | Cardiac Electrophysiology PN ---
Assessment/Plan Assessment/Plan 1. Chest pain. EKG showed anterior T-wave inversion. Ruled out for [facility] protocol. Her echocardiogram showed ejection fraction of 50-55%, mild pulmonary hypertension. Scheduled for a stress test tomorrow. Will get cardiac cath report from [facility] from 02/25/20 2. Hyponatremia. The patient has been given 3% normal saline and Lasix 10 mg IV every 8 hours. Further evaluation by Dr. Michel. 3. Hypokalemia. Potassium was replaced. Subjective Subjective At times gets kristal in 50s.Had cardiac cath at [facility] 02/25/20, reportedly was negative. Still off and on CP Objective Last 24 Hour Vital Signs Date Time Temp Pulse Resp B/P (MAP) Pulse Ox O2 Delivery O2 Flow Rate FiO2 05/16/20 09:00 Room Air 05/16/20 08:00 59 05/16/20 08:00 98.4 59 20 127/72 (90) 97 05/16/20 04:00 61 05/16/20 04:00 98.4 58 20 102/65 (77) 98 05/16/20 00:00 58 05/16/20 00:00 98.8 59 20 99/55 (70) 97 05/15/20 21:00 Room Air 05/15/20 20:00 64 05/15/20 20:00 98.8 78 20 137/77 (97) 98 05/15/20 16:00 99.7 68 20 102/60 (74) 98 05/15/20 16:00 67 Intake and Output 05/15/20 05/16/20 19:00 07:00 Output Total 1 ml Balance -1 ml Output Urine Total 1 ml # Voids 3 4 # Bowel Movements 1 Laboratory Tests Test 05/16/20 06:25 White Blood Count 7.9 K/UL (4.8-10.8) Red Blood Count 4.44 M/UL (4.20-5.40) Hemoglobin 13.8 G/DL (12.0-16.0) Hematocrit 40.9 % (37.0-47.0) Mean Corpuscular Volume 92 FL (80-99) Mean Corpuscular Hemoglobin 31.1 PG (27.0-31.0) H Mean Corpuscular Hemoglobin Concent 33.8 G/DL (32.0-36.0) Red Cell Distribution Width 11.4 % (11.6-14.8) L Platelet Count 252 K/UL (150-450) Mean Platelet Volume 5.8 FL (6.5-10.1) L Neutrophils (%) (Auto) 64.6 % (45.0-75.0) Lymphocytes (%) (Auto) 24.3 % (20.0-45.0) Monocytes (%) (Auto) 8.4 % (1.0-10.0) Eosinophils (%) (Auto) 1.4 % (0.0-3.0) Basophils (%) (Auto) 1.4 % (0.0-2.0) Sodium Level 134 MMOL/L (136-145) L Potassium Level 4.4 MMOL/L (3.5-5.1) Chloride Level 96 MMOL/L (98-107) L Carbon Dioxide Level 26 MMOL/L (21-32) Anion Gap 12 mmol/L (5-15) Blood Urea Nitrogen 10 mg/dL (7-18) Creatinine 0.7 MG/DL (0.55-1.30) Estimat Glomerular Filtration Rate > 60 mL/min (>60) Glucose Level 104 MG/DL (74-106) Hemoglobin A1c 5.9 % (4.3-6.0) Uric Acid 2.4 MG/DL (2.6-7.2) L Calcium Level 9.6 MG/DL (8.5-10.1) Phosphorus Level 3.6 MG/DL (2.5-4.9) Magnesium Level 2.0 MG/DL (1.8-2.4) Total Bilirubin 1.0 MG/DL (0.2-1.0) Gamma Glutamyl Transpeptidase 29 U/L (5-85) Aspartate Amino Transf (AST/SGOT) 68 U/L (15-37) H Alanine Aminotransferase (ALT/SGPT) 125 U/L (12-78) H Alkaline Phosphatase 90 U/L (46-116) Total Creatine Kinase 126 U/L (26-308) Troponin I 0.000 ng/mL (0.000-0.056) C-Reactive Protein, Quantitative < 0.4 mg/dL (0.00-0.90) Pro-B-Type Natriuretic Peptide 147 pg/mL (0-125) H Total Protein 8.6 G/DL (6.4-8.2) H Albumin 4.1 G/DL (3.4-5.0) Globulin 4.5 g/dL Albumin/Globulin Ratio 0.9 (1.0-2.7) L Hepatitis A IgM Antibody Pending Hepatitis C Antibody Pending Objective NECK: No jugular venous distention. LUNGS: Clear. CARDIOVASCULAR: Regular S1 and S2 with no gallop or murmur. ABDOMEN: Soft. EXTREMITIES: No pitting edema. Alfie Cronin MD May 16, 2020 13:58
[2020-05-16 16:00] VITALS: BP 103/67
--- NOTE | 2020-05-16 19:15 | NUR ---
NURSE HAND-OFF REPORT: Important Events on Shift:NA Patient Status: stable Diet: NPO Pending Orders: Stress test/ US ABD Pending Results/Labs:NA Pending MD notification:NA Latest Vital Signs: Temperature 99.0 , Pulse 60 , B/P 103 /67 , Respiratory Rate 16 , O2 SAT 97 , Room Air, O2 Flow Rate . Vital Sign Comment: Stable EKG Rhythm: Sinus Rhythm Rhythm change?: N MD Notified?: N - MD Response: Latest Barnes Fall Score: 30 Fall Risk: Medium Risk Safety Measures: Call light Within Reach, Bed Alarm Zone 1, Side Rails Side Rails x2, Bed position Low and Locked. Fall Precautions: Yellow Socks Door Sign Patient Fall Education Report given to Livia/RN.
--- NOTE | 2020-05-16 19:31 | NUR ---
NURSE NOTES: Received patient report from ENDER Bettencourt. Patient shows no signs of distress or pain at the time. Patient is AO x4. Patient is aware that she needs to be NPO at midnight for abdominal ultrasound and stress test. IV site is leaking will start a new one. Bed is in the lowest position, call light is within reach, side rails up x 2. Patient is currently on room air and denies feeling short of breath. Will continue to monitor.
[2020-05-16 20:00] VITALS: BP 128/80
--- NOTE | 2020-05-16 23:43 | NUR ---
Patient has new IV on Right forearm 22 Gauge. Intact and patent.
--- NOTE | 2020-05-16 23:54 | General Progress Note ---
Assessment/Plan Problem List: (1) Chest pain ICD Codes: R07.9 - Chest pain, unspecified SNOMED: 28477718 (2) Hyponatremia ICD Codes: E87.1 - Hypo-osmolality and hyponatremia SNOMED: 90491556 (3) SIADH (syndrome of inappropriate ADH production) ICD Codes: E22.2 - Syndrome of inappropriate secretion of antidiuretic hormone SNOMED: 89596610 (4) Bradycardia ICD Codes: R00.1 - Bradycardia, unspecified SNOMED: 04994958 Status: progressing Assessment/Plan: afebrile nac chest pain r/o acs check trop Subjective ROS Limited/Unobtainable: Yes Allergies: Coded Allergies: No Known Allergies (Unverified , 05/15/20) Objective Last 24 Hour Vital Signs Date Time Temp Pulse Resp B/P (MAP) Pulse Ox O2 Delivery O2 Flow Rate FiO2 05/16/20 21:00 Room Air 05/16/20 20:00 99.9 61 18 128/80 (96) 98 05/16/20 16:00 60 05/16/20 16:00 99.0 60 16 103/67 (79) 97 05/16/20 12:00 98.1 60 18 123/71 (88) 98 05/16/20 12:00 65 05/16/20 09:00 Room Air 05/16/20 08:00 59 05/16/20 08:00 98.4 59 20 127/72 (90) 97 05/16/20 04:00 61 05/16/20 04:00 98.4 58 20 102/65 (77) 98 05/16/20 00:00 58 05/16/20 00:00 98.8 59 20 99/55 (70) 97 Intake and Output 05/15/20 05/16/20 19:00 07:00 Output Total 1 ml Balance -1 ml Output Urine Total 1 ml # Voids 3 4 # Bowel Movements 1 Laboratory Tests 05/16/20 06:25: White Blood Count 7.9, Red Blood Count 4.44, Hemoglobin 13.8, Hematocrit 40.9, Mean Corpuscular Volume 92, Mean Corpuscular Hemoglobin 31.1H, Mean Corpuscular Hemoglobin Concent 33.8, Red Cell Distribution Width 11.4L, Platelet Count 252, Mean Platelet Volume 5.8L, Neutrophils (%) (Auto) 64.6, Lymphocytes (%) (Auto) 24.3, Monocytes (%) (Auto) 8.4, Eosinophils (%) (Auto) 1.4, Basophils (%) (Auto ) 1.4, Sodium Level 134L, Potassium Level 4.4, Chloride Level 96L, Carbon Dioxide Level 26, Anion Gap 12, Blood Urea Nitrogen 10, Creatinine 0.7, Estimat Glomerular Filtration Rate > 60, Glucose Level 104, Hemoglobin A1c 5.9, Uric Acid 2.4L, Calcium Level 9.6, Phosphorus Level 3.6, Magnesium Level 2.0, Total Bilirubin 1.0, Gamma Glutamyl Transpeptidase 29, Aspartate Amino Transf (AST/ SGOT) 68H, Alanine Aminotransferase (ALT/SGPT) 125H, Alkaline Phosphatase 90, Total Creatine Kinase 126, Troponin I 0.000, C-Reactive Protein, Quantitative < 0.4, Pro-B-Type Natriuretic Peptide 147H, Total Protein 8.6H, Albumin 4.1, Globulin 4.5, Albumin/Globulin Ratio 0.9L, Hepatitis A IgM Antibody [Pending], Hepatitis C Antibody [Pending] Height (Feet): 5 Height (Inches): 1.00 Weight (Pounds): 118 Karie Arellano MD May 16, 2020 23:54
[2020-05-17] VITALS: BP 108/66
[2020-05-17 04:00] VITALS: BP 114/62
--- NOTE | 2020-05-17 07:33 | NUR ---
NURSE NOTES: Received report from ENDER Bhakta. Pt is stable, on 2LMP NC, sitting up in bed. Pt has no S/S or complaints of distress at this time.AOx4. L hand 22g IV SL, patent and asymptomatic. Pt bed low and locked, reminded to call for help and call light in reach.
--- NOTE | 2020-05-17 07:35 | NUR ---
NURSE HAND-OFF REPORT: Important Events on Shift:NA[] Patient Status: Full code[] Diet: NPO[] Pending Orders: []Abdominal ultrasound and stress test Pending Results/Labs:[]NA Pending MD notification:[]Call Dr. Wharton once Cardiac Cath result comes back Latest Vital Signs: Temperature 98.4 , Pulse 56 , B/P 114 /62 , Respiratory Rate 20 , O2 SAT 97 , Room Air, O2 Flow Rate . Vital Sign Comment: []NA EKG Rhythm: Sinus Bradycardia Rhythm change?: N MD Notified?: N - MD Response: Latest Barnes Fall Score: 30 Fall Risk: Medium Risk Safety Measures: Call light Within Reach, Bed Alarm Zone 1, Side Rails Side Rails x2, Bed position Low and Locked. Fall Precautions: Yellow Socks Door Sign Patient Fall Education Report given to []ENDER Daniels.
[2020-05-17 08:00] VITALS: BP 136/81
[2020-05-17] MEDS: Sertraline 50mg tab ORAL SCH (08:24)
[2020-05-17] MEDS: Docusate 100mg cap ORAL SCH ×2 (08:25→17:18)
[2020-05-17] MEDS: Aspirin Baby 81mg ORAL SCH (08:25)
--- NOTE | 2020-05-17 08:36 | NUR ---
NURSE NOTES: Pt stable and off tele for AUBRIE matta/ Chris.
[2020-05-17 08:58] LABS: ALANINE AMINOTRANSFERASE 127 U/L (12-78); ALBUMIN 4.1 G/DL (3.4-5.0); ALBUMIN/GLOBULIN RATIO 0.9 (1.0-2.7); ALKALINE PHOSPHATASE 91 U/L (46-116); ANION GAP 13 mmol/L (5-15); ASPARTATE AMINO TRANSFERASE 67 U/L (15-37); BILIRUBIN,TOTAL 0.9 MG/DL (0.2-1.0); BLOOD UREA NITROGEN 14 mg/dL (7-18); CALCIUM 9.1 MG/DL (8.5-10.1); CARBON DIOXIDE 25 MMOL/L (21-32); CHLORIDE 96 MMOL/L (98-107); CREATININE 0.8 MG/DL (0.55-1.30); PHOSPHORUS 3.9 MG/DL (2.5-4.9); POTASSIUM 3.8 MMOL/L (3.5-5.1); SODIUM 134 MMOL/L (136-145)
--- NOTE | 2020-05-17 09:07 | NUR ---
NURSE NOTES: Pt stable and back from [place].
--- NOTE | 2020-05-17 09:59 | NUR ---
NURSE NOTES: Pt fever of 100.9, acetaminophen and ice packs applied, temperature retake 100.4. notified. Awaiting call back. Addendum: 05/17/20 at 1999 by Frances Kellogg RN RN wrong Pt, disregard
[2020-05-17 12:00] VITALS: BP 113/73
--- NOTE | 2020-05-17 12:18 | Nephrology Progress Note ---
Assessment/Plan Problem List: (1) Hyponatremia (2) SIADH (syndrome of inappropriate ADH production) (3) Bradycardia (4) Chest pain Assessment 64 Y old presents with CP Low Na: likely SIADH Low K Plan May 17: Serum sodium 134. Will continue saline and Lasix to keep intake below output. Continue p.o. fluid restriction. Previously: Patient's daughter at the bedside Continue 3% saline and intravenous Lasix Keep I<O PO Fluid restriction Protonix, Colace, oral potassium supplements, Monitor electrolytes. Per orders Subjective ROS Limited/Unobtainable: No Constitutional: Reports: malaise Objective Objective Last 24 Hour Vital Signs Date Time Temp Pulse Resp B/P (MAP) Pulse Ox O2 Delivery O2 Flow Rate FiO2 05/17/20 08:00 60 05/17/20 08:00 98.2 63 19 136/81 (99) 94 05/17/20 07:57 Room Air 05/17/20 04:00 98.4 58 20 114/62 (79) 97 05/17/20 04:00 56 05/17/20 00:00 55 05/17/20 00:00 99.5 59 20 108/66 (80) 97 05/16/20 21:00 Room Air 05/16/20 20:00 62 05/16/20 20:00 99.9 61 18 128/80 (96) 98 05/16/20 16:00 60 05/16/20 16:00 99.0 60 16 103/67 (79) 97 Intake and Output 05/16/20 05/17/20 19:00 07:00 Intake Total 1284.5 ml 90 ml Balance 1284.5 ml 90 ml Intake Oral 1100 ml IV Total 184.5 ml 90 ml # Voids 4 3 # Bowel Movements 1 Current Medications Medications (Trade) Dose Ordered Sig/Juan Route PRN Reason Start Time Stop Time Status Last Admin Dose Admin Aspirin (ASA) 81 mg DAILY ORAL 05/16/20 09:00 06/30/20 08:59 05/17/20 08:25 Docusate Sodium (Colace) 100 mg TWICE A DAY ORAL 05/15/20 18:00 06/14/20 17:59 05/17/20 08:25 Furosemide (Lasix) 10 mg EVERY 8 HOURS IV 05/15/20 14:00 06/14/20 13:59 05/17/20 05:57 Ondansetron HCl (Zofran) 4 mg Q6H PRN ORAL Nausea & Vomiting 05/15/20 11:30 06/14/20 11:29 Pantoprazole (Protonix) 40 mg BID ORAL 05/15/20 18:00 06/14/20 17:59 05/17/20 08:24 Potassium Chloride (K-Dur) 40 meq DAILY ORAL 05/17/20 09:00 08/13/20 13:29 05/17/20 08:25 Regadenoson (Lexiscan) 0.4 mg ONCE PRN IV stress test 05/15/20 16:45 05/18/20 23:59 05/17/20 11:56 Sertraline HCl (Zoloft) 50 mg DAILY ORAL 05/16/20 09:00 06/15/20 08:59 05/17/20 08:24 Laboratory Tests 05/17/20 08:25: Sodium Level 134L, Potassium Level 3.8, Chloride Level 96L, Carbon Dioxide Level 25, Anion Gap 13, Blood Urea Nitrogen 14, Creatinine 0.8, Estimat Glomerular Filtration Rate > 60, Glucose Level 108H, Uric Acid 2.5L, Calcium Level 9.1, Phosphorus Level 3.9, Magnesium Level 1.8, Total Bilirubin 0.9, Aspartate Amino Transf (AST/SGOT) 67H, Alanine Aminotransferase (ALT/SGPT) 127H , Alkaline Phosphatase 91, Total Protein 8.6H, Albumin 4.1, Globulin 4.5, Albumin/Globulin Ratio 0.9L Height (Feet): 5 Height (Inches): 1.00 Weight (Pounds): 112 General Appearance: no apparent distress Cardiovascular: normal rate Abdomen: soft Objective No change Kyle Michel MD May 17, 2020 12:18
[2020-05-17] MEDS ORDERED: NaCl 3% 500ml 250 ML IV SCH (14:00)
--- NOTE | 2020-05-17 14:40 | Diagnostic Imaging Report ---
Indications: Chest pain Technique: Single day single isotope protocol utilized. Initially, resting images obtained using IV administration 10.7 millicuries 99M technetium Myoview. Subsequently, patient underwent lexiscan stress testing. See cardiology report for details. During Lexiscan infusion, IV administration 32.4 mCi 99 M technetium Myoview. SPECT and planar images obtained. SPECT images gated to 8 phases of the cardiac cycle were also obtained, and reformatted into cine images for evaluation of ejection fraction. Comparison: none Findings: Presence or absence of symptoms during infusion is not described on the cardiology report. Per cardiology report, resting EKG demonstrates normal sinus rhythm with anterolateral T-wave abnormality. Presence or absence of EKG changes during infusion is not described. Imaging demonstrates normal perfusion. No fixed nor reversible post stress perfusion abnormalities are demonstrated. The left ventricular chamber size is normal. Calculated post stress ejection fraction 70%. No focal wall motion abnormality Impression: Nonischemic clinical response to pharmacologic stress, per cardiology report Nonischemic electrocardiographic response to pharmacologic stress, per cardiology report No imaging findings to suggest ischemia, at level of stress achieved. Calculated post stress ejection fraction 7%
--- NOTE | 2020-05-17 15:50 | Cardiac Electrophysiology PN ---
Assessment/Plan Assessment/Plan 1. Chest pain. EKG showed anterior T-wave inversion. Ruled out for [place] protocol. Her echocardiogram showed ejection fraction of 50-55%, mild pulmonary hypertension. Scheduled for a stress test today.Awaiting cardiac cath report from [facility] from 02/25/20 2. Hyponatremia. The patient has been given 3% normal saline and Lasix 10 mg IV every 8 hours. Further evaluation by Dr. Michel. 3. Hypokalemia. Potassium was replaced. 4. Abdominal pain. Abd US pending DW RN Subjective Subjective Awaiting cardiac cath report at [facility] from 02/25/20. Still off and on CP. Stress test today pending Objective Last 24 Hour Vital Signs Date Time Temp Pulse Resp B/P (MAP) Pulse Ox O2 Delivery O2 Flow Rate FiO2 05/17/20 12:00 62 05/17/20 12:00 97.7 86 18 113/73 (86) 99 05/17/20 08:00 60 05/17/20 08:00 98.2 63 19 136/81 (99) 94 05/17/20 07:57 Room Air 05/17/20 04:00 98.4 58 20 114/62 (79) 97 05/17/20 04:00 56 05/17/20 00:00 55 05/17/20 00:00 99.5 59 20 108/66 (80) 97 05/16/20 21:00 Room Air 05/16/20 20:00 62 05/16/20 20:00 99.9 61 18 128/80 (96) 98 05/16/20 16:00 60 05/16/20 16:00 99.0 60 16 103/67 (79) 97 Intake and Output 05/16/20 05/17/20 19:00 07:00 Intake Total 1284.5 ml 90 ml Balance 1284.5 ml 90 ml Intake Oral 1100 ml IV Total 184.5 ml 90 ml # Voids 4 3 # Bowel Movements 1 Laboratory Tests Test 05/17/20 08:25 Sodium Level 134 MMOL/L (136-145) L Potassium Level 3.8 MMOL/L (3.5-5.1) Chloride Level 96 MMOL/L (98-107) L Carbon Dioxide Level 25 MMOL/L (21-32) Anion Gap 13 mmol/L (5-15) Blood Urea Nitrogen 14 mg/dL (7-18) Creatinine 0.8 MG/DL (0.55-1.30) Estimat Glomerular Filtration Rate > 60 mL/min (>60) Glucose Level 108 MG/DL (74-106) H Uric Acid 2.5 MG/DL (2.6-7.2) L Calcium Level 9.1 MG/DL (8.5-10.1) Phosphorus Level 3.9 MG/DL (2.5-4.9) Magnesium Level 1.8 MG/DL (1.8-2.4) Total Bilirubin 0.9 MG/DL (0.2-1.0) Aspartate Amino Transf (AST/SGOT) 67 U/L (15-37) H Alanine Aminotransferase (ALT/SGPT) 127 U/L (12-78) H Alkaline Phosphatase 91 U/L (46-116) Total Protein 8.6 G/DL (6.4-8.2) H Albumin 4.1 G/DL (3.4-5.0) Globulin 4.5 g/dL Albumin/Globulin Ratio 0.9 (1.0-2.7) L Objective NECK: No jugular venous distention. LUNGS: Clear. CARDIOVASCULAR: Regular S1 and S2 with no gallop or murmur. ABDOMEN: Soft. EXTREMITIES: No pitting edema. Alfie Cronin MD May 17, 2020 15:50
[2020-05-17 16:00] VITALS: BP 100/68
--- NOTE | 2020-05-17 16:10 | NUR ---
CASE MANAGEMENT:REVIEW 05/17/20 SI: CHEST PAIN. SIADH. HYPONATREMIA. BRADYCARDIA 99.5 59 20 108/66 98% ON RA NA-134 AST/ALT+67/127 IS: K-DUR PO QD IVF 3% NACL 250CC @30/HR IV LASIX Q8HRS ZOLOFT PO QD ASA PO QD PROTONIX PO BID : TELEMETRY STATUS DCP: FROM HOME PLAN: FLUID RESTRICTION CONTINUE 3% SALINE & IV LASIX STRESS TEST SCHEDULED FOR TODAY
--- NOTE | 2020-05-17 17:30 | NUR ---
NURSE HAND-OFF REPORT: Important Events on Shift: cardiac stress test, requested results from [facility], [place] Patient Status: [FC, stable] Diet: cardiac diet, regular texture Pending Orders: n/a Pending Results/Labs:abd US, NPO at midnight Pending MD notification: n/a Latest Vital Signs: Temperature 97.7 , Pulse 61 , B/P 100 /68 , Respiratory Rate 18 , O2 SAT 97 , Room Air, O2 Flow Rate . Vital Sign Comment: n/a EKG Rhythm: Sinus Rhythm Rhythm change?: N MD Notified?: N - MD Response: Latest Barnes Fall Score: 30 Fall Risk: Medium Risk Safety Measures: Call light Within Reach, Bed Alarm Zone 1, Side Rails Side Rails x2, Bed position Low and Locked. Fall Precautions: Yellow Socks Door Sign Patient Fall Education Report given to ENDER Bhakta.
--- NOTE | 2020-05-17 19:59 | NUR ---
NURSE NOTES: Received patient report from ENDER Daniels. Patient shows no signs of distress or pain at the time. IV is intact and patent. There are no signs of erythema, infiltration, or bleeding. Patient is aware that she has abdominal ultrasound tomorrow and will be NPO at midnight. Patient is on room air and shows no signs of respiratory distress. Patient is AO x4. Bed is in the lowest position, call light is within reach, side rails up x2. Will continue to monitor.
[2020-05-17 20:00] VITALS: BP 108/64
--- NOTE | 2020-05-17 21:01 | General Progress Note ---
Assessment/Plan Status: progressing Assessment/Plan: Assessment - Abnormal LFT - Epigastric pain - Chest pain - low grade temp Recommendations - F/u viral serologies - abd ultrasound pending - PPI Subjective Allergies: Coded Allergies: No Known Allergies (Unverified , 05/15/20) Subjective Feels OK / same some low grade temps noted mild epigastric pain Objective Last 24 Hour Vital Signs Date Time Temp Pulse Resp B/P (MAP) Pulse Ox O2 Delivery O2 Flow Rate FiO2 05/17/20 20:00 99.5 65 19 108/64 (79) 95 05/17/20 16:00 97.7 81 18 100/68 (79) 97 05/17/20 16:00 61 05/17/20 12:00 62 05/17/20 12:00 97.7 86 18 113/73 (86) 99 05/17/20 08:00 60 05/17/20 08:00 98.2 63 19 136/81 (99) 94 05/17/20 07:57 Room Air 05/17/20 04:00 98.4 58 20 114/62 (79) 97 05/17/20 04:00 56 05/17/20 00:00 55 05/17/20 00:00 99.5 59 20 108/66 (80) 97 05/16/20 21:00 Room Air Intake and Output 05/16/20 05/17/20 19:00 07:00 Intake Total 1284.5 ml 90 ml Balance 1284.5 ml 90 ml Intake Oral 1100 ml IV Total 184.5 ml 90 ml # Voids 4 3 # Bowel Movements 1 Laboratory Tests 05/17/20 08:25: Sodium Level 134L, Potassium Level 3.8, Chloride Level 96L, Carbon Dioxide Level 25, Anion Gap 13, Blood Urea Nitrogen 14, Creatinine 0.8, Estimat Glomerular Filtration Rate > 60, Glucose Level 108H, Uric Acid 2.5L, Calcium Level 9.1, Phosphorus Level 3.9, Magnesium Level 1.8, Total Bilirubin 0.9, Aspartate Amino Transf (AST/SGOT) 67H, Alanine Aminotransferase (ALT/SGPT) 127H , Alkaline Phosphatase 91, Total Protein 8.6H, Albumin 4.1, Globulin 4.5, Albumin/Globulin Ratio 0.9L Height (Feet): 5 Height (Inches): 1.00 Weight (Pounds): 112 Objective WDWN L woman NCAT supple CTA RR abd soft ND no edema Nerissa Sanchez MD May 17, 2020 21:01
--- NOTE | 2020-05-17 22:11 | General Progress Note ---
Assessment/Plan Problem List: (1) Chest pain ICD Codes: R07.9 - Chest pain, unspecified SNOMED: 25167326 (2) Hyponatremia ICD Codes: E87.1 - Hypo-osmolality and hyponatremia SNOMED: 73327812 (3) SIADH (syndrome of inappropriate ADH production) ICD Codes: E22.2 - Syndrome of inappropriate secretion of antidiuretic hormone SNOMED: 05523333 (4) Bradycardia ICD Codes: R00.1 - Bradycardia, unspecified SNOMED: 03007287 Status: progressing Assessment/Plan: weak will discuss w perl software engineer chest pain r/o acs check trop Subjective ROS Limited/Unobtainable: Yes Allergies: Coded Allergies: No Known Allergies (Unverified , 05/15/20) Objective Last 24 Hour Vital Signs Date Time Temp Pulse Resp B/P (MAP) Pulse Ox O2 Delivery O2 Flow Rate FiO2 05/17/20 20:00 99.5 65 19 108/64 (79) 95 05/17/20 16:00 97.7 81 18 100/68 (79) 97 05/17/20 16:00 61 05/17/20 12:00 62 05/17/20 12:00 97.7 86 18 113/73 (86) 99 05/17/20 08:00 60 05/17/20 08:00 98.2 63 19 136/81 (99) 94 05/17/20 07:57 Room Air 05/17/20 04:00 98.4 58 20 114/62 (79) 97 05/17/20 04:00 56 05/17/20 00:00 55 05/17/20 00:00 99.5 59 20 108/66 (80) 97 Intake and Output 05/16/20 05/17/20 19:00 07:00 Intake Total 1284.5 ml 90 ml Balance 1284.5 ml 90 ml Intake Oral 1100 ml IV Total 184.5 ml 90 ml # Voids 4 3 # Bowel Movements 1 Laboratory Tests 05/17/20 08:25: Sodium Level 134L, Potassium Level 3.8, Chloride Level 96L, Carbon Dioxide Level 25, Anion Gap 13, Blood Urea Nitrogen 14, Creatinine 0.8, Estimat Glomerular Filtration Rate > 60, Glucose Level 108H, Uric Acid 2.5L, Calcium Level 9.1, Phosphorus Level 3.9, Magnesium Level 1.8, Total Bilirubin 0.9, Aspartate Amino Transf (AST/SGOT) 67H, Alanine Aminotransferase (ALT/SGPT) 127H , Alkaline Phosphatase 91, Total Protein 8.6H, Albumin 4.1, Globulin 4.5, Albumin/Globulin Ratio 0.9L Height (Feet): 5 Height (Inches): 1.00 Weight (Pounds): 112 Karie Arellano MD May 17, 2020 22:11
[2020-05-18] VITALS (8 sets, daily range): BP systolic 98–130; BP diastolic 60–83
[2020-05-18 06:03] LABS: ALANINE AMINOTRANSFERASE 123 U/L (12-78); ALBUMIN 3.8 G/DL (3.4-5.0); ALBUMIN/GLOBULIN RATIO 0.9 (1.0-2.7); ALKALINE PHOSPHATASE 83 U/L (46-116); ANION GAP 8 mmol/L (5-15); ASPARTATE AMINO TRANSFERASE 57 U/L (15-37); BILIRUBIN,TOTAL 0.7 MG/DL (0.2-1.0); BLOOD UREA NITROGEN 22 mg/dL (7-18); CALCIUM 9.4 MG/DL (8.5-10.1); CARBON DIOXIDE 26 MMOL/L (21-32); CHLORIDE 101 MMOL/L (98-107); CREATININE 0.9 MG/DL (0.55-1.30); PHOSPHORUS 4.4 MG/DL (2.5-4.9); POTASSIUM 4.6 MMOL/L (3.5-5.1); SODIUM 135 MMOL/L (136-145)
--- NOTE | 2020-05-18 07:16 | NUR ---
NURSE HAND-OFF REPORT: Important Events on Shift:[NA] Patient Status: []Full code Diet: [NPO] Pending Orders: Abdominal Ultrasound Pending Results/Labs:NA Pending MD notification:NA Latest Vital Signs: Temperature 97.9 , Pulse 61 , B/P 103 /64 , Respiratory Rate 19 , O2 SAT 98 , Room Air, O2 Flow Rate . Vital Sign Comment: NA EKG Rhythm: Sinus Rhythm Rhythm change?: Y MD Notified?: N - MD Response: Latest Barnes Fall Score: 30 Fall Risk: Medium Risk Safety Measures: Call light Within Reach, Bed Alarm Zone 1, Side Rails Side Rails x2, Bed position Low and Locked. Fall Precautions: Yellow Socks Door Sign Patient Fall Education Report given to ENDER Galarza
--- NOTE | 2020-05-18 08:40 | NUR ---
NURSE NOTES: Received patient and report from Livia HANDLEY in bed resting, denies any pain at this time, denies SOB and chest pain at this time. Noted patient feels anxious and states "it comes and goes." Skin is intact and warm on touch. IV is intact and patent, SL. Bed is in lowest position with bedside rail up x2, brakes engaged for safety. call light is within reach. All needs attended to and met. Will continue with the plan of care.
[2020-05-18] MEDS: Sertraline 50mg tab ORAL SCH (09:17)
[2020-05-18] MEDS: Aspirin Baby 81mg ORAL SCH (09:19)
[2020-05-18] MEDS: Docusate 100mg cap ORAL SCH ×2 (09:19→18:26)
--- NOTE | 2020-05-18 13:23 | General Progress Note ---
Assessment/Plan Problem List: (1) Chest pain ICD Codes: R07.9 - Chest pain, unspecified SNOMED: 70131010 (2) Hyponatremia ICD Codes: E87.1 - Hypo-osmolality and hyponatremia SNOMED: 37117362 (3) SIADH (syndrome of inappropriate ADH production) ICD Codes: E22.2 - Syndrome of inappropriate secretion of antidiuretic hormone SNOMED: 35986863 (4) Bradycardia ICD Codes: R00.1 - Bradycardia, unspecified SNOMED: 36683296 Status: progressing Assessment/Plan: afebrile chest pain is improving no resp issues r/o acs check trop Subjective ROS Limited/Unobtainable: Yes Allergies: Coded Allergies: No Known Allergies (Unverified , 05/15/20) Objective Last 24 Hour Vital Signs Date Time Temp Pulse Resp B/P (MAP) Pulse Ox O2 Delivery O2 Flow Rate FiO2 05/18/20 12:00 99.0 62 20 125/71 (89) 100 05/18/20 12:00 62 05/18/20 09:00 Room Air 05/18/20 08:00 99.0 60 18 102/60 (74) 100 05/18/20 08:00 60 05/18/20 04:00 61 05/18/20 04:00 97.9 63 19 103/64 (77) 98 05/18/20 00:00 98.1 59 19 98/62 (74) 97 05/18/20 00:00 56 05/17/20 21:00 Room Air 05/17/20 20:00 68 05/17/20 20:00 99.5 65 19 108/64 (79) 95 05/17/20 16:00 97.7 81 18 100/68 (79) 97 05/17/20 16:00 61 Intake and Output 05/17/20 05/18/20 19:00 07:00 Intake Total 600 ml Balance 600 ml Intake Oral 600 ml # Voids 3 Laboratory Tests 05/18/20 05:05: Sodium Level 135L, Potassium Level 4.6, Chloride Level 101, Carbon Dioxide Level 26, Anion Gap 8, Blood Urea Nitrogen 22H, Creatinine 0.9, Estimat Glomerular Filtration Rate > 60, Glucose Level 104, Uric Acid 3.1, Calcium Level 9.4, Phosphorus Level 4.4, Magnesium Level 1.9, Total Bilirubin 0.7, Aspartate Amino Transf (AST/SGOT) 57H, Alanine Aminotransferase (ALT/SGPT) 123H , Alkaline Phosphatase 83, Total Protein 8.2, Albumin 3.8, Globulin 4.4, Albumin /Globulin Ratio 0.9L Height (Feet): 5 Height (Inches): 1.00 Weight (Pounds): 109 Karie Arellano MD May 18, 2020 13:23
--- NOTE | 2020-05-18 15:26 | Nephrology Progress Note ---
Assessment/Plan Problem List: (1) Hyponatremia (2) SIADH (syndrome of inappropriate ADH production) (3) Bradycardia (4) Chest pain Assessment 64 Y old presents with CP Low Na: likely SIADH Low K Plan May 18: Na 135. Continue as is . DC Lasix May 17: Serum sodium 134. Will continue saline and Lasix to keep intake below output. Continue p.o. fluid restriction. Previously: Patient's daughter at the bedside Continue 3% saline and intravenous Lasix Keep I<O PO Fluid restriction Protonix, Colace, oral potassium supplements, Monitor electrolytes. Per orders Subjective ROS Limited/Unobtainable: No Constitutional: Reports: malaise Objective Objective Last 24 Hour Vital Signs Date Time Temp Pulse Resp B/P (MAP) Pulse Ox O2 Delivery O2 Flow Rate FiO2 05/18/20 12:00 99.0 62 20 125/71 (89) 100 05/18/20 12:00 62 05/18/20 09:00 Room Air 05/18/20 08:00 99.0 60 18 102/60 (74) 100 05/18/20 08:00 60 05/18/20 04:00 61 05/18/20 04:00 97.9 63 19 103/64 (77) 98 05/18/20 00:00 98.1 59 19 98/62 (74) 97 05/18/20 00:00 56 05/17/20 21:00 Room Air 05/17/20 20:00 68 05/17/20 20:00 99.5 65 19 108/64 (79) 95 05/17/20 16:00 97.7 81 18 100/68 (79) 97 05/17/20 16:00 61 Intake and Output 05/17/20 05/18/20 19:00 07:00 Intake Total 600 ml Balance 600 ml Intake Oral 600 ml # Voids 3 Current Medications Medications (Trade) Dose Ordered Sig/Juan Route PRN Reason Start Time Stop Time Status Last Admin Dose Admin Aspirin (ASA) 81 mg DAILY ORAL 05/16/20 09:00 06/30/20 08:59 05/18/20 09:19 Docusate Sodium (Colace) 100 mg TWICE A DAY ORAL 05/15/20 18:00 06/14/20 17:59 05/18/20 09:19 Furosemide (Lasix) 20 mg Q8HR IV 05/17/20 14:00 06/16/20 13:59 05/18/20 13:56 Ondansetron HCl (Zofran) 4 mg Q6H PRN ORAL Nausea & Vomiting 05/15/20 11:30 06/14/20 11:29 Pantoprazole (Protonix) 40 mg BID ORAL 05/15/20 18:00 06/14/20 17:59 05/18/20 09:17 Potassium Chloride (K-Dur) 40 meq BID ORAL 05/17/20 18:00 08/13/20 13:29 05/18/20 09:19 Regadenoson (Lexiscan) 0.4 mg ONCE PRN IV stress test 05/15/20 16:45 05/18/20 23:59 05/17/20 11:56 Sertraline HCl (Zoloft) 50 mg DAILY ORAL 05/16/20 09:00 06/15/20 08:59 05/18/20 09:17 Laboratory Tests 05/18/20 05:05: Sodium Level 135L, Potassium Level 4.6, Chloride Level 101, Carbon Dioxide Level 26, Anion Gap 8, Blood Urea Nitrogen 22H, Creatinine 0.9, Estimat Glomerular Filtration Rate > 60, Glucose Level 104, Uric Acid 3.1, Calcium Level 9.4, Phosphorus Level 4.4, Magnesium Level 1.9, Total Bilirubin 0.7, Aspartate Amino Transf (AST/SGOT) 57H, Alanine Aminotransferase (ALT/SGPT) 123H , Alkaline Phosphatase 83, Total Protein 8.2, Albumin 3.8, Globulin 4.4, Albumin /Globulin Ratio 0.9L Height (Feet): 5 Height (Inches): 1.00 Weight (Pounds): 109 General Appearance: no apparent distress Objective No change Kyle Michel MD May 18, 2020 15:25
--- NOTE | 2020-05-18 15:53 | NUR ---
CASE MANAGEMENT:REVIEW 05/18/20 SI: CHEST PAIN. SIADH. HYPONATREMIA. BRADYCARDIA 99.0 62 20 125/71 100% ON RA RL=027 BUN+22 AST/ALT+57/123 IS: ZOLOFT PO QD ASA PO QD PROTONIX PO BID : TELEMETRY STATUS DCP: FROM HOME PLAN: FLUID RESTRICTION
--- NOTE | 2020-05-18 15:59 | NUR ---
DISCHARGE PLANNING SECOND REQUEST MADE TO DR BLANC FOR DISCHARGE.
--- NOTE | 2020-05-18 16:09 | Diagnostic Imaging Report ---
Indication: Abnormal liver function tests Technique: Busch-scale and duplex images of the upper abdomen were obtained Comparison: none Findings: Gallbladder is unremarkable, without stones, wall thickening, nor pericholecystic fluid. Sonographic Henderson's sign is negative. Common bile duct measures 6 mm in diameter. No intrahepatic biliary ductal dilatation. Liver demonstrates normal echogenicity, no focal abnormality. Portal vein and hepatic veins are patent. Pancreas is unremarkable. Spleen is unremarkable. Left kidney measures 9.4 cm in length. Right kidney measures 8.6 cm length. Both kidneys demonstrate normal echogenicity. There is no hydronephrosis. No focal abnormality . Non-aneurysmal abdominal aorta . Impression: Negative
--- NOTE | 2020-05-18 17:28 | Cardiac Electrophysiology PN ---
Assessment/Plan Assessment/Plan 1. Chest pain. EKG showed anterior T-wave inversion. Ruled out for [place] protocol. Her echocardiogram showed ejection fraction of 50-55%, mild pulmonary hypertension. Stress test from yesterday was nonischemic. Cardiac cath report from [facility] from 02/25/20 pending 2. Hyponatremia. Improved to [address] Michel. 3. Hypokalemia. Potassium was replaced. 4. Abdominal pain. DW RN Subjective Subjective Stress test from yesterday was nonischemic. No SOB. In SR Objective Last 24 Hour Vital Signs Date Time Temp Pulse Resp B/P (MAP) Pulse Ox O2 Delivery O2 Flow Rate FiO2 05/18/20 12:00 99.0 62 20 125/71 (89) 100 05/18/20 12:00 62 05/18/20 09:00 Room Air 05/18/20 08:00 99.0 60 18 102/60 (74) 100 05/18/20 08:00 60 05/18/20 04:00 61 05/18/20 04:00 97.9 63 19 103/64 (77) 98 05/18/20 00:00 98.1 59 19 98/62 (74) 97 05/18/20 00:00 56 05/17/20 21:00 Room Air 05/17/20 20:00 68 05/17/20 20:00 99.5 65 19 108/64 (79) 95 Intake and Output 05/17/20 05/18/20 19:00 07:00 Intake Total 600 ml Balance 600 ml Intake Oral 600 ml # Voids 3 Laboratory Tests Test 05/18/20 05:05 Sodium Level 135 MMOL/L (136-145) L Potassium Level 4.6 MMOL/L (3.5-5.1) Chloride Level 101 MMOL/L (98-107) Carbon Dioxide Level 26 MMOL/L (21-32) Anion Gap 8 mmol/L (5-15) Blood Urea Nitrogen 22 mg/dL (7-18) H Creatinine 0.9 MG/DL (0.55-1.30) Estimat Glomerular Filtration Rate > 60 mL/min (>60) Glucose Level 104 MG/DL (74-106) Uric Acid 3.1 MG/DL (2.6-7.2) Calcium Level 9.4 MG/DL (8.5-10.1) Phosphorus Level 4.4 MG/DL (2.5-4.9) Magnesium Level 1.9 MG/DL (1.8-2.4) Total Bilirubin 0.7 MG/DL (0.2-1.0) Aspartate Amino Transf (AST/SGOT) 57 U/L (15-37) H Alanine Aminotransferase (ALT/SGPT) 123 U/L (12-78) H Alkaline Phosphatase 83 U/L (46-116) Total Protein 8.2 G/DL (6.4-8.2) Albumin 3.8 G/DL (3.4-5.0) Globulin 4.4 g/dL Albumin/Globulin Ratio 0.9 (1.0-2.7) L Objective NECK: No jugular venous distention. LUNGS: Clear. CARDIOVASCULAR: Regular S1 and S2 with no gallop or murmur. ABDOMEN: Soft. EXTREMITIES: No pitting edema. Alfie Cronin MD May 18, 2020 17:28
--- NOTE | 2020-05-18 18:00 | NUR ---
NURSE NOTES: PATIENT RECEIVED FROM [facility] VIA BED. PATIENT AOX4. BELONGINGS ACCOUNTED FOR. BEDSIDE REPORT RECEIVED. [facility]OCK PATENT TO [facility]. DENIES PAIN/ SOB. ORIENTED TO ROOM. CALL LIGHT WITHIN REACH. BED IN LOW AND LOCKED POSITION.
[2020-05-18] MEDS ORDERED: Lexiscan 0.4mg/5ml syringe IV ONE (18:15)
--- NOTE | 2020-05-18 18:20 | NUR ---
NURSE NOTES: TRANSFERRED PATIENT TO [facility] 3RD FLOOR. REPORT GIVEN TO DANTE HANDLEY. BELONGING LISTS ACKNOWLEDGED AND SIGNED BY BOTH NURSES. PATIENT'S SKIN IS INTACT. IV ON LFA 22G IS INTACT AND PATENT, SL. ATHLETIC GEAR CUSTODIAN REMOVED. PATIENT IS IN STABLE CONDITION.
--- NOTE | 2020-05-18 19:30 | NUR ---
NURSE HAND-OFF: Important Events on Shift:NONE Patient Status: STABLE Diet: CARDIAC Pending Orders: NONE Pending Results/Labs:NONE Pending MD notification:NONE Latest Vital Signs: Temperature 98.6 , Pulse 70 , B/P 130 /83 , Respiratory Rate 20 , O2 SAT 97 , Room Air, O2 Flow Rate . Vital Sign Comment: [] Latest Barnes Fall Score: 30 Fall Risk: Medium Risk Safety Measures: Call light Within Reach, Bed Alarm Zone 1, Side Rails Side Rails x2, Bed position Low and Locked. Fall Precautions: Yellow Socks Door Sign Patient Fall Education Report given to JOSE MIGUEL BETHEA RN.
--- NOTE | 2020-05-18 19:30 | NUR ---
NURSE NOTES: Receive a report from ENDER Case. Round is done. Pt is awake and alert. No acute distress noted. Denies pain. Call light within reach. Will continue to monitor.
--- NOTE | 2020-05-18 21:04 | General Progress Note ---
Assessment/Plan Status: progressing Assessment/Plan: Assessment - Abnormal LFT - Epigastric pain - Chest pain - low grade temp Recommendations - F/u viral serologies - abd ultrasound --> negative - PPI Subjective Allergies: Coded Allergies: No Known Allergies (Unverified , 05/15/20) Subjective Feels OK / same some epigastric discomfort Objective Last 24 Hour Vital Signs Date Time Temp Pulse Resp B/P (MAP) Pulse Ox O2 Delivery O2 Flow Rate FiO2 05/18/20 18:00 98.6 70 20 130/83 (99) 97 05/18/20 17:27 97.9 62 18 114/69 (84) 98 05/18/20 16:00 67 05/18/20 16:00 97.9 62 18 114/69 (84) 98 05/18/20 12:00 99.0 62 20 125/71 (89) 100 05/18/20 12:00 62 05/18/20 09:00 Room Air 05/18/20 08:00 99.0 60 18 102/60 (74) 100 05/18/20 08:00 60 05/18/20 04:00 61 05/18/20 04:00 97.9 63 19 103/64 (77) 98 05/18/20 00:00 98.1 59 19 98/62 (74) 97 05/18/20 00:00 56 Intake and Output 05/17/20 05/18/20 19:00 07:00 Intake Total 600 ml Balance 600 ml Intake Oral 600 ml # Voids 3 Laboratory Tests 05/18/20 05:05: Sodium Level 135L, Potassium Level 4.6, Chloride Level 101, Carbon Dioxide Level 26, Anion Gap 8, Blood Urea Nitrogen 22H, Creatinine 0.9, Estimat Glomerular Filtration Rate > 60, Glucose Level 104, Uric Acid 3.1, Calcium Level 9.4, Phosphorus Level 4.4, Magnesium Level 1.9, Total Bilirubin 0.7, Aspartate Amino Transf (AST/SGOT) 57H, Alanine Aminotransferase (ALT/SGPT) 123H , Alkaline Phosphatase 83, Total Protein 8.2, Albumin 3.8, Globulin 4.4, Albumin /Globulin Ratio 0.9L Height (Feet): 5 Height (Inches): 1.00 Weight (Pounds): 109 Objective WDWN L woman NCAT supple CTA RR abd soft ND no edema Khorrami,Payman MD May 18, 2020 21:04
[2020-05-19] VITALS: BP 111/71
[2020-05-19 04:00] VITALS: BP 91/55
[2020-05-19 05:40] LABS: BASOPHILS % (AUTO) 1.8 % (0.0-2.0); EOSINOPHILS % (AUTO) 2.8 % (0.0-3.0); HEMATOCRIT 41.9 % (37.0-47.0); HEMOGLOBIN 14.2 G/DL (12.0-16.0); LYMPHOCYTES % (AUTO) 32.5 % (20.0-45.0); MEAN CORPUSCULAR VOLUME 91 FL (80-99); MONOCYTES % (AUTO) 7.9 % (1.0-10.0); PLATELET COUNT 262 K/UL (150-450); RED CELL DISTRIBUTION WIDTH 11.2 % (11.6-14.8); WHITE BLOOD COUNT 6.3 K/UL (4.8-10.8)
[2020-05-19 05:53] LABS: ALANINE AMINOTRANSFERASE 114 U/L (12-78); ALBUMIN 3.8 G/DL (3.4-5.0); ALBUMIN/GLOBULIN RATIO 0.9 (1.0-2.7); ALKALINE PHOSPHATASE 89 U/L (46-116); ANION GAP 6 mmol/L (5-15); ASPARTATE AMINO TRANSFERASE 46 U/L (15-37); BILIRUBIN,TOTAL 0.8 MG/DL (0.2-1.0); BLOOD UREA NITROGEN 22 mg/dL (7-18); CARBON DIOXIDE 29 MMOL/L (21-32); CHLORIDE 99 MMOL/L (98-107); PHOSPHORUS 4.3 MG/DL (2.5-4.9); POTASSIUM 4.8 MMOL/L (3.5-5.1); SODIUM 134 MMOL/L (136-145)
--- NOTE | 2020-05-19 06:00 | NUR ---
NURSE NOTES: Place a sign for fluid restriction 800ml and provide a hat for strict I&O. Will continue to follow up. No acute distress noted.
[2020-05-19 06:19] LABS: CALCIUM 9.3 MG/DL (8.5-10.1)
--- NOTE | 2020-05-19 07:30 | NUR ---
NURSE NOTES: WALKING ROUNDS DONE WITH NIGHT RN. PATIENT AWAKE IN BED SMILING WHEN GREETED. DENIES CP/SOB. DOES NOT DISPLAY ANY ANXIETY. TOLERATING BREAKFAST. QUESTIONS ANSWERED, NEEDS MET, DISCUSSED PLAN OF CARE FOR THE DAY AND FLUID RESTRICTION. ACKNOWLEDGED UNDERSTANDING. BED IN LOW AND LOCKED POSITION , CALL LIGHT WITHIN REACH.
--- NOTE | 2020-05-19 07:30 | NUR ---
NURSE HAND-OFF: Important Events on Shift:[] Patient Status: [] Diet: [] Pending Orders: [] Pending Results/Labs:[] Pending MD notification:[] Latest Vital Signs: Temperature 98.2 , Pulse 62 , B/P 91 /55 , Respiratory Rate 18 , O2 SAT 98 , Room Air, O2 Flow Rate . Vital Sign Comment: [] Latest Barnes Fall Score: 20 Fall Risk: Low Risk Safety Measures: Call light Within Reach, Bed Alarm Zone 1, Side Rails Side Rails x2, Bed position Low and Locked. Fall Precautions: Yellow Socks Door Sign Patient Fall Education Report given to [ENDER Case].
[2020-05-19 08:00] VITALS: BP 126/68
[2020-05-19] MEDS ORDERED: Aspirin Baby 81mg ORAL SCH (09:00)
[2020-05-19] MEDS ORDERED: Sertraline 50mg tab ORAL SCH (09:00)
--- NOTE | 2020-05-19 09:25 | NUR ---
NURSE NOTES: Spoke to regarding patient and cleared to discharge today. Order noted and carried out.
[2020-05-19] MEDS: Docusate 100mg cap ORAL SCH (09:39)
--- NOTE | 2020-05-19 09:55 | NUR ---
NURSE NOTES: UPON ASSESSING PATIENT. STATES SHE CP 3/10 TO LEFT CHEST AREA. VSS. AFEBRILE. NO RESPIRATORY DISTRESS NOTED. AM MEDS GIVEN. PLACED CALL TO DR. GARDNER. AWAITING RETURN CALL. MERVIN (REMI) INFORMED WELL.
[2020-05-19 09:58] VITALS: BP 112/68
[2020-05-19 12:00] VITALS: BP 132/74
--- NOTE | 2020-05-19 12:33 | NUR ---
NURSE NOTES: PLACED CALL TO OFFICE AND TO MD CELL#; NO RETURN CALL FROM EARLIER TODAY. DR. GARDNER CAME TO SEE PATIENT . CP RESOLVED ON ITS OWN EARLIER THIS AM. CLEARED BY DR. GARDNER FOR DISCHARGE. PATIENT AWARE.
--- NOTE | 2020-05-19 13:15 | Nephrology Progress Note ---
Assessment/Plan Problem List: (1) Hyponatremia (2) SIADH (syndrome of inappropriate ADH production) (3) Bradycardia (4) Chest pain Assessment 64 Y old presents with CP Low Na: likely SIADH Low K Plan May 19: Sodium 134. Patient stable from renal standpoint of view. Okay to discharge. Fluid restriction should be continued as an outpatient and the patient need to see her PMD for electrolyte check regularly. May 18: Na 135. Continue as is . DC Lasix May 17: Serum sodium 134. Will continue saline and Lasix to keep intake below output. Continue p.o. fluid restriction. Previously: Patient's daughter at the bedside Continue 3% saline and intravenous Lasix Keep I<O PO Fluid restriction Protonix, Colace, oral potassium supplements, Monitor electrolytes. Per orders Subjective ROS Limited/Unobtainable: No Constitutional: Reports: malaise Objective Objective Last 24 Hour Vital Signs Date Time Temp Pulse Resp B/P (MAP) Pulse Ox O2 Delivery O2 Flow Rate FiO2 05/19/20 12:00 98.4 64 17 132/74 (93) 95 05/19/20 09:58 67 20 112/68 (83) 97 05/19/20 09:00 Room Air 05/19/20 08:00 98.0 68 20 126/68 (87) 95 05/19/20 04:00 98.2 62 18 91/55 (67) 98 05/19/20 00:00 98.2 61 18 111/71 (84) 98 05/18/20 21:00 Room Air 05/18/20 20:00 97.7 62 18 116/75 (89) 97 05/18/20 18:00 98.6 70 20 130/83 (99) 97 05/18/20 17:27 97.9 62 18 114/69 (84) 98 05/18/20 16:00 67 05/18/20 16:00 97.9 62 18 114/69 (84) 98 Intake and Output 05/18/20 05/19/20 19:00 07:00 Intake Total 240 ml 100 ml Balance 240 ml 100 ml Intake Oral 240 ml 100 ml # Voids 3 5 Current Medications Medications (Trade) Dose Ordered Sig/Juan Route PRN Reason Start Time Stop Time Status Last Admin Dose Admin Aspirin (ASA) 81 mg DAILY ORAL 05/19/20 09:00 06/30/20 08:59 8/19/20 09:39 Docusate Sodium (Colace) 100 mg TWICE A DAY ORAL 05/18/20 18:30 06/17/20 18:29 05/19/20 09:39 Ondansetron HCl (Zofran) 4 mg Q6H PRN ORAL Nausea & Vomiting 05/18/20 18:30 06/14/20 18:29 Pantoprazole (Protonix) 40 mg BID ORAL 05/18/20 18:30 06/17/20 18:29 05/19/20 09:40 Sertraline HCl (Zoloft) 50 mg DAILY ORAL 05/19/20 09:00 06/15/20 08:59 05/19/20 09:39 Laboratory Tests 05/19/20 05:20: White Blood Count 6.3, Red Blood Count 4.60, Hemoglobin 14.2, Hematocrit 41.9, Mean Corpuscular Volume 91, Mean Corpuscular Hemoglobin 30.9, Mean Corpuscular Hemoglobin Concent 34.0, Red Cell Distribution Width 11.2L, Platelet Count 262, Mean Platelet Volume 5.3L, Neutrophils (%) (Auto) 55.0, Lymphocytes (%) (Auto) 32.5, Monocytes (%) (Auto) 7.9, Eosinophils (%) (Auto) 2.8, Basophils (%) (Auto ) 1.8, Sodium Level 134L, Potassium Level 4.8, Chloride Level 99, Carbon Dioxide Level 29, Anion Gap 6, Blood Urea Nitrogen 22H, Creatinine 1.0, Estimat Glomerular Filtration Rate 55.5, Glucose Level 102, Osmolality 289L, Uric Acid 3.4, Calcium Level 9.3, Phosphorus Level 4.3, Magnesium Level 2.0, Total Bilirubin 0.8, Aspartate Amino Transf (AST/SGOT) 46H, Alanine Aminotransferase ( ALT/SGPT) 114H, Alkaline Phosphatase 89, Total Protein 8.1, Albumin 3.8, Globulin 4.3, Albumin/Globulin Ratio 0.9L Height (Feet): 5 Height (Inches): 1.00 Weight (Pounds): 107 General Appearance: no apparent distress Objective No change Kyle Michel MD May 19, 2020 13:15
--- NOTE | 2020-05-19 13:22 | Cardiac Electrophysiology PN ---
Assessment/Plan Assessment/Plan 1. Chest pain. EKG showed anterior T-wave inversion. Ruled out for [place] protocol. Her echocardiogram showed ejection fraction of 50-55%, mild pulmonary hypertension. Stress test from yesterday was nonischemic. 2. Hyponatremia. Improved to [address] Michel. 3. Hypokalemia. Potassium was replaced. 4. Abdominal pain. DW RN OK to DC Subjective Subjective Stress test was nonischemic. No SOB. Off tele now Objective Last 24 Hour Vital Signs Date Time Temp Pulse Resp B/P (MAP) Pulse Ox O2 Delivery O2 Flow Rate FiO2 05/19/20 12:00 98.4 64 17 132/74 (93) 95 05/19/20 09:58 67 20 112/68 (83) 97 05/19/20 09:00 Room Air 05/19/20 08:00 98.0 68 20 126/68 (87) 95 05/19/20 04:00 98.2 62 18 91/55 (67) 98 05/19/20 00:00 98.2 61 18 111/71 (84) 98 05/18/20 21:00 Room Air 05/18/20 20:00 97.7 62 18 116/75 (89) 97 05/18/20 18:00 98.6 70 20 130/83 (99) 97 05/18/20 17:27 97.9 62 18 114/69 (84) 98 05/18/20 16:00 67 05/18/20 16:00 97.9 62 18 114/69 (84) 98 Intake and Output 05/18/20 05/19/20 19:00 07:00 Intake Total 240 ml 100 ml Balance 240 ml 100 ml Intake Oral 240 ml 100 ml # Voids 3 5 Laboratory Tests Test 05/19/20 05:20 White Blood Count 6.3 K/UL (4.8-10.8) Red Blood Count 4.60 M/UL (4.20-5.40) Hemoglobin 14.2 G/DL (12.0-16.0) Hematocrit 41.9 % (37.0-47.0) Mean Corpuscular Volume 91 FL (80-99) Mean Corpuscular Hemoglobin 30.9 PG (27.0-31.0) Mean Corpuscular Hemoglobin Concent 34.0 G/DL (32.0-36.0) Red Cell Distribution Width 11.2 % (11.6-14.8) L Platelet Count 262 K/UL (150-450) Mean Platelet Volume 5.3 FL (6.5-10.1) L Neutrophils (%) (Auto) 55.0 % (45.0-75.0) Lymphocytes (%) (Auto) 32.5 % (20.0-45.0) Monocytes (%) (Auto) 7.9 % (1.0-10.0) Eosinophils (%) (Auto) 2.8 % (0.0-3.0) Basophils (%) (Auto) 1.8 % (0.0-2.0) Sodium Level 134 MMOL/L (136-145) L Potassium Level 4.8 MMOL/L (3.5-5.1) Chloride Level 99 MMOL/L (98-107) Carbon Dioxide Level 29 MMOL/L (21-32) Anion Gap 6 mmol/L (5-15) Blood Urea Nitrogen 22 mg/dL (7-18) H Creatinine 1.0 MG/DL (0.55-1.30) Estimat Glomerular Filtration Rate 55.5 mL/min (>60) Glucose Level 102 MG/DL (74-106) Osmolality 289 mOsm/kg (297-317) L Uric Acid 3.4 MG/DL (2.6-7.2) Calcium Level 9.3 MG/DL (8.5-10.1) Phosphorus Level 4.3 MG/DL (2.5-4.9) Magnesium Level 2.0 MG/DL (1.8-2.4) Total Bilirubin 0.8 MG/DL (0.2-1.0) Aspartate Amino Transf (AST/SGOT) 46 U/L (15-37) H Alanine Aminotransferase (ALT/SGPT) 114 U/L (12-78) H Alkaline Phosphatase 89 U/L (46-116) Total Protein 8.1 G/DL (6.4-8.2) Albumin 3.8 G/DL (3.4-5.0) Globulin 4.3 g/dL Albumin/Globulin Ratio 0.9 (1.0-2.7) L Objective NECK: No jugular venous distention. LUNGS: Clear. CARDIOVASCULAR: Regular S1 and S2 with no gallop or murmur. ABDOMEN: Soft. EXTREMITIES: No pitting edema. Alfie Cronin MD May 19, 2020 13:22
--- NOTE | 2020-05-19 13:30 | NUR ---
NURSE NOTES: DISCHARGE ORDER RECEIVED AND CLEARANCE FOR DISCHARGE RECEIVED FOR PATIENT. DAUGHTER ENROUTE TO PLASTIC SURGERY NURSE PATIENT.
--- NOTE | 2020-05-19 14:40 | NUR ---
NURSE NOTES: DAUGHTER HERE TO HOSPITAL PHARMACY TECHNICIAN PATIENT. DC INSTRUCTIONS REVIEWED WITH PATIENT AND FAMILY. ALL BELONGINGS ACCOUNTED FOR. ACKNOWLEDGED UNDERSTANDING.
--- NOTE | 2020-05-19 17:23 | General Progress Note ---
Assessment/Plan Status: progressing Assessment/Plan: Assessment - Abnormal LFT - Epigastric pain - resolved - Chest pain - low grade temp Recommendations - F/u viral serologies - abd ultrasound --> negative - PPI - out patient f/u with PMD Subjective Allergies: Coded Allergies: No Known Allergies (Unverified , 05/15/20) Subjective Patient seen in am Feels OK / same abd pain resolved tolerating PO d/w patient re w/u Objective Last 24 Hour Vital Signs Date Time Temp Pulse Resp B/P (MAP) Pulse Ox O2 Delivery O2 Flow Rate FiO2 05/19/20 12:00 98.4 64 17 132/74 (93) 95 05/19/20 09:58 67 20 112/68 (83) 97 05/19/20 09:00 Room Air 05/19/20 08:00 98.0 68 20 126/68 (87) 95 05/19/20 04:00 98.2 62 18 91/55 (67) 98 05/19/20 00:00 98.2 61 18 111/71 (84) 98 05/18/20 21:00 Room Air 05/18/20 20:00 97.7 62 18 116/75 (89) 97 05/18/20 18:00 98.6 70 20 130/83 (99) 97 05/18/20 17:27 97.9 62 18 114/69 (84) 98 Intake and Output 05/18/20 05/19/20 19:00 07:00 Intake Total 240 ml 100 ml Balance 240 ml 100 ml Intake Oral 240 ml 100 ml # Voids 3 5 Laboratory Tests 05/19/20 05:20: White Blood Count 6.3, Red Blood Count 4.60, Hemoglobin 14.2, Hematocrit 41.9, Mean Corpuscular Volume 91, Mean Corpuscular Hemoglobin 30.9, Mean Corpuscular Hemoglobin Concent 34.0, Red Cell Distribution Width 11.2L, Platelet Count 262, Mean Platelet Volume 5.3L, Neutrophils (%) (Auto) 55.0, Lymphocytes (%) (Auto) 32.5, Monocytes (%) (Auto) 7.9, Eosinophils (%) (Auto) 2.8, Basophils (%) (Auto ) 1.8, Sodium Level 134L, Potassium Level 4.8, Chloride Level 99, Carbon Dioxide Level 29, Anion Gap 6, Blood Urea Nitrogen 22H, Creatinine 1.0, Estimat Glomerular Filtration Rate 55.5, Glucose Level 102, Osmolality 289L, Uric Acid 3.4, Calcium Level 9.3, Phosphorus Level 4.3, Magnesium Level 2.0, Total Bilirubin 0.8, Aspartate Amino Transf (AST/SGOT) 46H, Alanine Aminotransferase ( ALT/SGPT) 114H, Alkaline Phosphatase 89, Total Protein 8.1, Albumin 3.8, Globulin 4.3, Albumin/Globulin Ratio 0.9L Height (Feet): 5 Height (Inches): 1.00 Weight (Pounds): 107 Objective WDWN L woman NCAT supple CTA RR abd soft ND no edema Nerissa Sanchez MD May 19, 2020 17:23
--- NOTE | 2020-05-20 17:05 | Discharge Summary ---
Discharge Summary Discharge Summary _ DATE OF ADMISSION: 05/15/2020 DATE OF DISCHARGE: 05/19/2020 DISCHARGED BY: Dr. Arellano REASON FOR ADMISSION: [] 64 years old female with past medical history of hypertension, coronary artery disease, presented for evaluation due to chest pain. Patient reported intermittent chest pain for the last few weeks. Recent echocardiogram performed as outpatient showed atherosclerotic disease. Patient reported that over the past 2-day pain was constant over the in the left side of her chest nonradiating and aching. Patient also reported tingling in her hands. No fever or chills. No shortness of breath or cough. No upper respiratory infection symptoms. Patient denied nausea and vomiting patient did report diaphoresis. Upon evaluation laboratory work-up revealed no leukocytosis stable hemoglobin hematocrit and platelet count. Sodium 128, potassium 3.2. Stable renal parameters. Glucose 139. Serum osmolarity 282 urine osmolality 374 urine sodium 84 uric acid 2.8 glucose 139 AST 70 ALT 119. Troponin negative. Lipid panel stable. Urine toxicology screen positive for opiates. EKG revealed sinus rhythm slight right axis with a signs of right ventricular hypertrophy. T wave inversion in precordial leads. Chest x-ray demonstrated no evidence of acute cardiopulmonary pathology. Patient subsequently admitted with chest pain rule out acute coronary syndrome hyponatremia and bradycardia highest the lowest heart rate was rate was in 50s. CONSULTANTS: php mysql web developer Dr. Murillo GI specialist Dr. Sanchez manager publishing Dr. Michel [facility]: Patient admitted. Director Agricultural Services followed to rule out acute coronary syndrome. Serial troponins were negative. Echocardiogram demonstrated preserved ejection fraction of 50 to 55%. No evidence of wall motion abnormality. Right ventricular systolic pressure of 39 consistent with a mild pulmonary hypertension. Patient subsequently undergone myocardial perfusion scan which revealed no imaging findings to suggest ischemia at the level of stress achieved. Calculated post-rest ejection fraction was 7%. Lipid panel was stable. TSH was within normal limits. Blood pressure was managed with antiplatelet therapy with aspirin continued. Blood pressure was closely monitor nitroglycerin was on board as needed. Pain management provided patient was on Lasix with close monitoring of volumes. Hyponatremia work-up was initiated. Patient per manager publishing patient had SIADH. Patient initially started on Lasix. Patient also received prior 3% saline patient received 3% saline and Lasix to keep intake below output oral fluid restriction continued. Sodium stabilized prior to discharge 134. Renal parameters remained stable potassium replacement 4.8 prior to discharge. GI specialist followed. Abdominal ultrasound was negative. Patient was GI prophylaxis with PPI. Bowel regimen instituted. Pain management addressed as needed. Hepatitis panel revealed no evidence of hepatitis C. Recommended follow-up with a primary care provider AST ALT trending down still remain remain elevated Supportive care provided. Oximetry remained stable on room air. Patient clinically stabilized and was ready for discharge home. FINAL DIAGNOSES: Chest pain Hyponatremia Likely SIADH Hypokalemia Abnormal LFT Epigastric pain Bradycardia DISCHARGE MEDICATIONS: See Medication Reconciliation list. DISCHARGE INSTRUCTIONS: Patient was discharged home. Patient follow-up with a primary care provider I have been assigned to dictate discharge summary for this account. I was not involved in the patient's management. Jennifer De La Vega NP May 20, 2020 17:05
== END 2020-05-19 14:40 | disposition home or self-care (01) | DRG 426 ==
LOC: EMR 06:20 → 2E 06:59 → EDBEDREQ 08:01 → 3E 05-18 18:02
DX: E22.2 Syndrome of inappropriate secretion of antidiuretic hormone (principal); R07.9 Chest pain, unspecified; R00.1 Bradycardia, unspecified; I25.10 Atherosclerotic heart disease of native coronary artery without angina pectoris; I10 Essential (primary) hypertension; R10.13 Epigastric pain; I27.20 Pulmonary hypertension, unspecified; E87.6 Hypokalemia
CPT/HCPCS: 36415; 71045; 76700; 78452; 80053; 80061; 80307; 82550; 82977; 83036; 83735; 83880; 83930; 83935; 84100; 84300; 84443; 84484; 84550; 85025; 86140; 86707; 86709; 86803; 93005; 93017; 93306; 96361; 96374; 99285; J2785; J8499